=== PATIENT | male | born 1950 | race Caucasian/White ===

== ENCOUNTER 2016-06-05 11:35 | Inpatient (IN) | payer MEDICARE ==
[2016-06-05] VITALS (10 sets, daily range): BP systolic 149–182; BP diastolic 77–101; PULSE 70–82; RESP 17–28; TEMP 98.1–98.4; O2SAT 93–97
[2016-06-05] MEDS ORDERED: FISHCAP4 PO (11:52)
[2016-06-05] MEDS ORDERED: ASPI1TAB69 PO (11:52)
[2016-06-05] MEDS ORDERED: SODIUM CHLOR 0.9% 1000 ML INJ 1,000 ML IV ONE (12:05)
--- NOTE | 2016-06-05 12:06 | RADRPT ---
EXAM DATE/TIME: 06/05/2016 11:55 [facility] COMPARISON: No previous studies available for comparison. INDICATIONS : Right facial droop with expressive aphasia this morning. RADIATION DOSE: 41.76 CTDIvol (mGy) MEDICAL HISTORY : Unable to obtain SURGICAL HISTORY : Unable to obtain ENCOUNTER: Initial ACUITY: 1 day PAIN SCALE: 0/10 LOCATION: cranial TECHNIQUE: Multiple contiguous axial images were obtained of the head. Using automated exposure control and adj ustment of the mA and/or kV according to patient size, radiation dose was kept as low as reasonably a chievable to obtain optimal diagnostic quality images. FINDINGS: CEREBRUM: The ventricles are normal for age. No evidence of midline shift, mass lesion, hemorrhage or acute in farction. No extra-axial fluid collections are seen. POSTERIOR FOSSA: The cerebellum and brainstem are intact. The 4th ventricle is midline. The cerebellopontine angle i s unremarkable. EXTRACRANIAL: Severe opacification of the ethmoid sinuses. SKULL: The calvaria is intact. No evidence of skull fracture. CONCLUSION: Severe ethmoid sinusitis. No acute intracranial findings. Sharan Busby MD on June 05, 2016 at 12:03 Board Certified Radiologist. This report was verified electronically.
--- NOTE | 2016-06-05 12:15 | PD ---
HPI Chief Complaint: Neuro Symptoms/ Deficits Time Seen by Provider: 11:53 Travel History International Travel<30 days: No Contact w/Intl Traveler<30days: No Traveled to known affect area: No History of Present Illness HPI This patient woke up this morning feeling fine. At 10:45 AM he developed speech slurring and facial droop and right sided weakness of arm and leg. I have declared him a stroke alert and put a call into neurologist Dr. Headley. However, at this time the patient's symptoms seem to be significantly improved. His muscle weakness has resolved. His facial droop has resolved. He still has some slurring of speech but it is understandable. No confusion. 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 No history of CVA. Severity of symptoms was severe but now moderate. No obvious alleviating factors. Duration 85 minutes PFSH Past Medical History ?: Not Social History Alcohol Use: No Tobacco Use: No Substance Use: No Allergies-Medications (Allergen,Severity, Reaction): Coded Allergies: No Known Allergies (Unverified , 06/05/16) Reported Meds & Prescriptions Reported Meds & Active Scripts Active Reported Aspirin 81 Mg Tabdr 81 Mg PO DAILY Fish Oil + D3 (Fish Oil-Cholecalciferol) 1,200-1,000 Mg-Unit Cap 1 Cap PO DAILY Review of Systems General / Constitutional: No: Fever Eyes: No: Visual changes HENT: No: Headaches Cardiovascular: No: Chest Pain or Discomfort Respiratory: No: Shortness of Breath Gastrointestinal: No: Abdominal Pain Genitourinary: No: Dysuria Musculoskeletal: No: Pain Skin: No Rash Neurologic: Positive: Weakness, Slurred Speech Psychiatric: No: Depression Endocrine: No: Polydipsia Hematologic/Lymphatic: No: Easy Bruising Physical Exam Narrative GENERAL: Well-nourished, well-developed patient in no apparent distress. SKIN: Warm and dry. HEAD: Atraumatic. Normocephalic. EYES: Pupils equal and round. No scleral icterus. No injection or drainage. ENT: No nasal bleeding or discharge. Mucous membranes pink and moist. NECK: Trachea midline. No JVD. CARDIOVASCULAR: Regular rate and rhythm. No murmur appreciated. RESPIRATORY: No accessory muscle use. Clear to auscultation. Breath sounds equal bilaterally. GASTROINTESTINAL: Abdomen soft, non-tender, nondistended. Hepatic and splenic margins not palpable. MUSCULOSKELETAL: No obvious deformities. No clubbing. No cyanosis. No edema. NEUROLOGICAL: Awake and alert. No obvious cranial nerve deficits. Motor grossly within normal limits. Some slurring of speech but understandable. I don't see any facial droop. PSYCHIATRIC: Appropriate mood and affect; insight and judgment normal. Data Data Last Documented VS Vital Signs Date Time Temp Pulse Resp B/P Pulse Ox O2 Delivery O2 Flow Rate FiO2 06/05/16 12:11 97 Nasal Cannula 2 06/05/16 11:43 98.2 82 17 182/[address] Brain W/O Iv Contrast(Rout) (06/05/16 ) Diet Npo (06/05/16 Lunch) Activity Bed Rest (06/05/16 ) Electrocardiogram (06/05/16 ) I-Stat Creatinine (06/05/16 12:05) I-Stat Profile (06/05/16 12:05) Prothrombin Time / Inr (Pt) (06/05/16 12:05) Act Partial Throm Time (Ptt) (06/05/16 12:05) Complete Blood Count With Diff (06/05/16 12:05) Fibrinogen (06/05/16 12:05) Creatine Kinase (Cpk) (06/05/16 12:05) Drug Screen, Random Urine (06/05/16 12:05) Consult Neurology (06/05/16 ) Ecg Monitoring (06/05/16 12:05) Neuro Checks Q2HX12,Q4H (06/05/16 12:05) Nursing Bedside Swallow Assess .ONCE (06/05/16 12:05) Iv Access Insert/Monitor (06/05/16 12:05) NPO (06/05/16 12:05) Oximetry (06/05/16 12:05) Oxygen Administration (06/05/16 12:05) Sodium Chlor 0.9% 1000 Ml Inj (Ns 1000 M (06/05/16 12:05) Resp Oxygen Jules C Titrat 1-4 L (06/05/16 12:05) Aspirin Ec (Ecotrin Ec) (06/05/16 12:45) Clopidogrel (Plavix) (06/05/16 12:45) Code Status (06/05/16 13:41) Nih Stroke Scale - Nihss .On admission and discharge (06/05/16 13:41) Neuro Checks Q2HX12,Q4H (06/05/16 13:41) Case Management Consult (06/05/16 ) Nursing Bedside Swallow Assess .ONCE (06/05/16 13:41) Scd Bilateral/Knee High RAMONA.QSHIFT (06/05/16 13:41) Hemoglobin (Hgb) A1c (06/05/16 13:41) Lipid Profile (06/06/16 06:00) Us Carotid Arteries Comp Bilat (06/05/16 ) Mra Brain W/O Contrast (Cow) (06/05/16 ) Mri Brain W/O Contrast (06/05/16 ) ^ Hold Medication (06/05/16 13:41) Sodium Chloride 0.9% Flush (Ns Flush) (06/05/16 21:00) Sodium Chloride 0.9% Flush (Ns Flush) (06/05/16 13:45) Sodium Chlor 0.9% 1000 Ml Inj (Ns 1000 M (06/05/16 14:00) Bedside Glucose RAMONA.AC&HS (06/05/16 13:41) ^ Discontinue Insulin Orders (06/05/16 13:41) Insulin Aspart Supplemtl Scale (Novolog (06/05/16 16:00) Dextrose 50% In Jermaine (Vial) Inj (D50w (Vi (06/05/16 13:45) Glucagon Inj (Glucagon Inj) (06/05/16 13:45) Consult Rehab Medicine (06/05/16 13:41) Patient Financial Advocate / Telemetry RAMONA.Q8H (06/05/16 13:41) Consult Jacqueline Navigator (06/05/16 ) Lupus Anticoagulant Drvvt (06/05/16 13:45) Cardiolipin Abs Igg,Igm,Iga (06/05/16 13:45) Factor V (5) Mutation (Leiden) (06/05/16 13:45) Prothrombin [id number] Mutation (06/05/16 13:45) Protein S Activity (06/05/16 13:45) Protein C Activity (06/05/16 13:45) Westergren Sedimentation Rate (06/05/16 13:45) Rapid Plasmin Reagin Screen (06/05/16 13:45) Dania Screen (06/05/16 13:45) Clopidogrel (Plavix) (06/06/16 09:00) Aspirin (Aspirin) (06/06/16 09:00) (Hub Use Only)Inp Phy Cons/Ref (06/05/16 ) (Hub Use Only)Inp Phy Cons/Ref (06/05/16 ) Vital Signs (Adult) Q4H (06/05/16 14:31) Nih Stroke Scale - Nihss .On admission and discharge (06/05/16 14:31) Neuro Checks Q2HX12,Q4H (06/05/16 14:31) ^ Notify Dr: Other (06/05/16 14:31) Ot Request For Service (06/05/16 14:31) Consult Pt Eval & Treat (06/05/16 14:31) Activity Bed Rest (06/05/16 14:31) Nursing Bedside Swallow Assess .ONCE (06/05/16 14:31) Scd Bilateral/Knee High RAMONA.QSHIFT (06/05/16 14:31) Diet Npo (06/05/16 Dinner) Hemoglobin (Hgb) A1c (06/05/16 14:31) Resp Oxygen Jules C Titrat 1-4 L (06/05/16 ) ^ Hold Medication (06/05/16 14:31) Sodium Chloride 0.9% Flush (Ns Flush) (06/05/16 21:00) Sodium Chloride 0.9% Flush (Ns Flush) (06/05/16 14:45) Enalaprilat Inj (Vasotec Inj) (06/05/16 14:45) Bedside Glucose RAMONA.AC&HS (06/05/16 14:31) ^ Discontinue Insulin Orders (06/05/16 14:31) Patient Financial Advocate / Telemetry RAMONA.Q8H (06/05/16 14:31) Scd Bilateral/Knee High RAMONA.BID (06/05/16 14:31) Admit Order (Ed Use Only) (06/05/16 14:50) Labs Laboratory Tests Test 06/05/16 11:53 White Blood Count 4.6 TH/MM3 Red Blood Count 4.99 MIL/MM3 Hemoglobin 14.8 GM/DL Bedside Hemoglobin 15.0 G/DL Hematocrit 43.7 % Bedside Hematocrit 44.0 % Mean Corpuscular Volume 87.6 FL Mean Corpuscular Hemoglobin 29.7 PG Mean Corpuscular Hemoglobin 33.9 % Concent Red Cell Distribution Width 12.9 % Platelet Count 81 TH/MM3 Mean Platelet Volume 8.9 FL Neutrophils (%) (Auto) 60.3 % Lymphocytes (%) (Auto) 15.7 % Monocytes (%) (Auto) 14.6 % Eosinophils (%) (Auto) 8.9 % Basophils (%) (Auto) 0.5 % Neutrophils # (Auto) 2.8 TH/MM3 Lymphocytes # (Auto) 0.7 TH/MM3 Monocytes # (Auto) 0.7 TH/MM3 Eosinophils # (Auto) 0.4 TH/MM3 Basophils # (Auto) 0.0 TH/MM3 CBC Comment AUTO DIFF Differential Comment AUTO DIFF CONFIRMED Platelet Estimate LOW Platelet Morphology Comment NORMAL Erythrocyte Sedimentation Rate 17 mm/hr Prothrombin Time 10.5 SEC Prothromb Time International 1.0 RATIO Ratio Activated Partial 26.2 SEC Thromboplast Time Fibrinogen 439 mg/dL Bedside Sodium 141 MMOL/L Bedside Potassium 3.7 MMOL/L Bedside Chloride 101 MMOL/L Bedside Blood Urea Nitrogen 16 MG/DL Bedside Creatinine 1.3 MG/DL Bedside Glucose 132 MG/DL Total Creatine Kinase 59 U/L MDM Medical Screen Exam Complete: Yes Emergency Medical Condition: Yes Medical Record Reviewed: Yes Differential Diagnosis CVA, TIA, intracranial hemorrhage Narrative Course I have reviewed the patient's electronic medical record. This patient presents with acute stroke. He is critically ill with acute stroke and I have made him a stroke alert. He went emergently to brain CT which shows no hemorrhage. There is some sinusitis but otherwise negative IV placed I reviewed his EKG shows sinus rhythm without ST elevation or ectopy Extended cardiac monitoring shows sinus rhythm without ectopy CBC is normal Coagulation studies are normal Metabolic profile is normal Brain CT shows some sinus changes but no acute hemorrhage I discussed in detail with neurologist cost control analyst Dr. Headley I gave him a dose of aspirin and Plavix I reviewed with the hospitalist who will admit He does not need TPA given the rapid improvement in symptoms now leaving him with only mild symptoms. Neurologist concurs. Critical Care Narrative Aggregate critical care time was 40 minutes. Time to perform other separately billable procedures was not included in the critical care time. My time did not include minutes spent treating any other patients simultaneously or on activities that did not directly contribute to the patient's treatment. The services I provided to this patient were to treat and/or prevent clinically significant deterioration that could result in: Brain stem herniation, permanent neurologic deficit, cardiopulmonary arrest I provided critical care services requiring my management, as noted below: Chart data review, documentation time, medication orders and management, vital sign assessments/reviewing monitor data, ordering and reviewing lab tests, ordering and interpreting/reviewing x-rays and diagnostic studies, care of the patient and discussion of the patient with the admitting physicians. Stroke Alert NIHSS NIH Stroke Scale Result: 1 NIHSS Time Completed: 11:45 Thrombolytic Contraindications Contraindications Comment: Rapid improvement of symptoms, symptoms now are mild Diagnosis Diagnosis: Primary Impression: Acute ischemic left MCA stroke Admitting Physician Requests: Admit Sven Deluca MD Jun 05, 2016 12:15
[2016-06-05 12:28] LABS: I-STAT POTASSIUM 3.7 MMOL/L (3.5-4.9)
[2016-06-05 12:33] LABS: AUTOMATED NEUTROPHIL # 2.8 TH/MM3 (1.8-7.7); BASOPHIL % 0.5 % (0.0-2.0); EOSINOPHIL # 0.4 TH/MM3 (0-0.4); EOSINOPHIL % 8.9 % (0.0-4.0); HEMATOCRIT 43.7 % (39.0-51.0); LYMPH % 15.7 % (9.0-44.0); LYMPHOCYTE # 0.7 TH/MM3 (1.0-4.8); MEAN CELL VOLUME 87.6 FL (80.0-100.0); MEAN CORPUSCULAR HEMOGLOBIN 29.7 PG (27.0-34.0); MEAN CORPUSCULAR HGB CONC 33.9 % (32.0-36.0); MONO % 14.6 % (0.0-8.0); NEUT % 60.3 % (16.0-70.0); PLATELET COUNT 81 TH/MM3 (150-450); RED BLOOD COUNT 4.99 MIL/MM3 (4.50-5.90); RED CELL DISTRIBUTION WIDTH 12.9 % (11.6-17.2); WHITE BLOOD COUNT 4.6 TH/MM3 (4.0-11.0)
[2016-06-05 12:38] LABS: HEMO FLAGS AUTO DIFF
[2016-06-05] MEDS ORDERED: CLOPIDOGREL 75 MG TAB PO ONE (12:45)
[2016-06-05] MEDS ORDERED: ASPIRIN EC 325 MG TABEC PO ONE (12:45)
[2016-06-05 12:47] LABS: APTT (PATIENT) 26.2 SEC (24.3-30.1); PROTHROMBIN TIME - PATIENT 10.5 SEC (9.8-11.6)
[2016-06-05 13:02] LABS: PLATELET ESTIMATE SMEAR LOW (NORMAL); PLATELET MORPHOLOGY NORMAL (NORMAL); SCAN/DIFF AUTO DIFF CONFIRMED
[2016-06-05] MEDS ORDERED: GLUCAGON 1 MG/ML VIAL IM/SQ PRN (13:45)
[2016-06-05] MEDS ORDERED: DEXTROSE 50% IN WATER 50 ML VIAL(D50) IV PUSH PRN (13:45)
[2016-06-05] MEDS ORDERED: SODIUM CHLORIDE 0.9% FLUSH 10 ML FLUSH IV FLUSH PRN ×2 (13:45→14:45)
[2016-06-05] MEDS: SODIUM CHLOR 0.9% 1000 ML INJ 1,000 ML IV SCH (14:32)
[2016-06-05] MEDS ORDERED: ENALAPRILAT 1.25 MG/ML VIAL IV PRN (14:45)
--- NOTE | 2016-06-05 15:03 | MB ---
cc: RUBINA BUSBY M.D. DATE OF CONSULTATION: 06/05/2016 REASON FOR CONSULTATION Stroke alert. HISTORY OF PRESENT ILLNESS Mr. Bowie is a 66-year-old man who was in his usual state of health until around 10:45 this morning when he suddenly developed significant right hemiparesis and right facial droop and slurred speech. He presented to the ER and a stroke alert was called. I discussed his case with Dr. Deluca. Since the onset of his symptoms he has shown marked improvement, basically normal now with the right arm and right leg strength with some minimal dysarthria. PAST MEDICAL HISTORY He has no prior history of stroke or TIA. He does have a history of DVT with pulmonary embolus about six years ago for which he was temporarily on Coumadin but is no longer on Coumadin. MEDICATIONS AT HOME His medications at home are just Aspirin 81 mg daily. He states he takes no other medications. ALLERGIES NONE KNOWN. SOCIAL HISTORY He denies alcohol use or tobacco use. NEUROLOGIC EXAMINATION VITAL SIGNS: His blood pressure is 182/101, pulse is 82, respiratory rate 17, temperature 98 degrees. Higher cortical function: He is alert and oriented. Speech is mildly dysarthric but not aphasic. He can repeat simple phrases. He can follow simple commands. Cranial nerves: He has got a very minimal right upper motor neuron 7th palsy but is able to activate facial muscles normally bilaterally. The palsy is mainly at rest. Other cranial nerves are normal. On motor examination, he demonstrates 5/5 strength of both upper and lower extremities. He has got normal fine motor skills in both upper extremities and both hands, he has no drift. Reflexes are symmetric. Cerebellar testing is normal. There is no Babinski present. IMAGING CT scan of the brain shows ethmoid sinusitis. No acute findings. No hemorrhage is present. LABORATORY DATA The white count is 4600, hemoglobin 14.8, hematocrit 43.7% platelet count is 81,000. Sodium is 141, potassium 3.7, chloride 101, BUN is 16, creatinine 1.3, glucose 132. His PT is 10.5, INR 1, APTT 26.2. His EKG is sinus rhythm. IMPRESSION Left hemisphere stroke, possible TIA. NIH Stroke Scale is 1. He is showing rapid improvement, now basically back to normal except for some residual mild dysarthria and mild right upper motor neuron 7th palsy. Because of the rapid resolution, I would recommend holding off on IV TPA in this case with the inherent risk of hemorrhage of TPA given the fact that he has essentially resolved his symptoms. Because of the low NIH Stroke Scale and no evidence of aphasia, I do not feel he needs further evaluation with CT angiography at the present time or any other advanced imaging at this time. RECOMMENDATIONS Would recommend starting Plavix 75 mg daily along with Aspirin 325 mg daily. Allow permissive hypertension up to 210/110. We will evaluate him further with an MRI/MRA of the brain, echocardiogram, carotid ultrasound, monitor telemetry, rule out a-fib, also lipid panel. Because of his history of DVT in the past, I would like to get a hypercoagulable panel to be sure he does not have a hypercoagulable state. Thank you for asking me to see this pleasant patient. MD LEANN Paulson/AGUSTÍN /1:40 PM /2:22 PM
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
[2016-06-05 15:35] LABS: AMPHETAMINE, URINE NEG (NEG); BARBITURATES, URINE NEG (NEG); COCAINE, URINE NEG (NEG)
[2016-06-05] MEDS: INSULIN ASPART SUPPLEMENTAL SCALE SQ SCH ×2 (16:00→22:04)
--- NOTE | 2016-06-05 16:27 | RADRPT ---
EXAM DATE/TIME: 06/05/2016 15:32 [facility] COMPARISON: No previous studies available for comparison. INDICATIONS : CVA. MEDICAL HISTORY : Deep venous thrombosis. Right side weakness. Slurred speech. Expressive aphasia. SURGICAL HISTORY : None. ENCOUNTER: Initial ACUITY: 1 day PAIN SCORE: 0/10 LOCATION: Bilateral neck PEAK SYSTOLIC VELOCITIES (cm/sec): ICA/CCA RATIO: Right: 1.1 Left: 0.6 ICA: Right: 77 Left: 63 CCA: Right: 72 Left: 110 ECA: Right: 104 Left: 72 VERTEBRAL: Right: 53 antegrade Left: 29 antegrade Elevated flow velocities and ICA/CCA ratios have been found to correlate with increased degrees of vessel stenosis, calculated as percentage of diameter relative to a normal segment of distal ICA/CCA FINDINGS: RIGHT CAROTID: No significant stenosis is visualized. The waveforms are within normal limits. LEFT CAROTID: No significant stenosis is visualized. The waveforms are within normal limits. VERTEBRAL ARTERIES: Antegrade flow is seen in both vertebral arteries. MISCELLANEOUS: None. CONCLUSION: Carotid ultrasound within normal limits. Sharan Busby MD on June 05, 2016 at 16:22 Board Certified Radiologist. This report was verified electronically.
--- NOTE | 2016-06-05 16:41 | RADRPT ---
EXAM DATE/TIME: 06/05/2016 16:23 [facility] COMPARISON: No previous studies available for comparison. INDICATIONS : Coughing sputum, stroke MEDICAL HISTORY : None. SURGICAL HISTORY : None. ENCOUNTER: Initial ACUITY: 1 day PAIN SCORE: 0/10 LOCATION: Bilateral chest FINDINGS: A single view of the chest demonstrates the lungs to be symmetrically aerated without evidence of mas s, infiltrate or effusion. The cardiomediastinal contours are unremarkable. Osseous structures are intact. CONCLUSION: 1. No acute cardiopulmonary disease. Lei Beavers MD on June 05, 2016 at 16:40 Board Certified Radiologist. This report was verified electronically.
--- NOTE | 2016-06-05 18:25 | RADRPT ---
EXAM DATE/TIME: 06/05/2016 17:39 [facility] COMPARISON: CT BRAIN W/O CONTRAST, June 05, 2016, 11:55. INDICATIONS : Slurred speech. Facial droop. CVA. MEDICAL HISTORY : Deep venous thrombosis. SURGICAL HISTORY : Tonsillectomy. Left knee. ENCOUNTER: Subsequent ACUITY: 1 day PAIN SCORE: 0/10 LOCATION: Head. TECHNIQUE: Multiplanar, multisequence MRI of the brain was performed without contrast. FINDINGS: There is focal signal abnormality within the left basal ganglia in the region of the body of the caud ate and extending into the expected region of the left globus pallidus on the diffusion weighted imag es indicating acute infarct. Minimal periventricular white matter small vessel ischemic changes are noted bilaterally. The ventricles, sulci and cisterns are normal in size, shape and position for the patient's age. There is an old lacunar infarct involving the head of the left caudate nucleus. Ther e is no acute hemorrhage, midline shift or extra-axial fluid collections. Mucosal thickening is note d involving the maxillary sinuses and ethmoid air cells bilaterally. CONCLUSION: 1. Focal signal abnormality involving the left basal ganglia on the diffusion weighted images indicat ing acute infarct in the left middle cerebral artery distribution. Clinical correlation is recommend ed. 2. Minimal periventricular white matter small vessel ischemic changes are bilaterally. 3. No acute hemorrhage, midline shift or extra-axial fluid collections. 4. Old lacunar infarct involving the head of the left caudate nucleus. 5. Mucosal thickening involving the bilateral maxillary and ethmoid air cells. Chris Chaney MD on June 05, 2016 at 18:16 Board Certified Radiologist. This report was verified electronically.
--- NOTE | 2016-06-05 18:29 | RADRPT ---
EXAM DATE/TIME: 06/05/2016 17:39 [place] COMPARISON: No previous studies available for comparison. INDICATIONS : Slurred speech. Facial droop. CVA. MEDICAL HISTORY : Deep venous thrombosis. SURGICAL HISTORY : Tonsillectomy. Left knee. ENCOUNTER: Subsequent ACUITY: 2 day PAIN SCORE: 0/10 LOCATION: Head. Please note a normal MRA of the brain does not entirely exclude the possibility of a small aneurysm, nor the possibility of distal intracranial vessel disease. TECHNIQUE: 3D time of flight MRA was performed. Source images, multiplanar STS MIP, and 3D volume MIP reconstru ctions were reviewed. FINDINGS: There is moderate focal segmental stenosis involving the left middle cerebral artery just proximal to the bifurcation. The distal branches of the middle cerebral arteries are patent bilaterally. The A 1 segments are patent bilaterally. The anterior cerebral arteries are patent. There is a patent rig ht posterior communicating artery which fills the right posterior cerebral artery. The left posterior cerebral artery fills from the basilar artery. Both posterior cerebral arteries are patent througho ut their courses. The basilar artery is patent without significant stenosis or occlusion. The upper most portion of the left vertebral artery is not visualized and may be occluded. The right upper vert ebral artery is patent. The upper cervical, petrous, cavernous, and supraclinoid internal carotid ar teries are patent bilaterally. There is no aneurysm formation. CONCLUSION: 1. Moderate focal segmental stenosis involving the left middle cerebral artery just proximal to the b ifurcation. 2. Patent right posterior communicating artery. Chris Chaney MD on June 05, 2016 at 18:20 Board Certified Radiologist. This report was verified electronically.
[2016-06-05] MEDS ORDERED: SODIUM CHLORIDE 0.9% FLUSH 10 ML FLUSH IV FLUSH SCH (21:00)
[2016-06-05 21:31] LABS: HEMOGLOBIN A1a 1.1 %
[2016-06-05 21:32] LABS: HEMOGLOBIN A1b 1.7 %; HEMOGLOBIN Ao 84.6 %; HEMOGLOBIN LA1C 2.4 %
[2016-06-05] MEDS: SODIUM CHLORIDE 0.9% FLUSH 10 ML FLUSH IV FLUSH SCH (22:04)
[2016-06-05] MEDS: HEPARIN SODIUM - SQ 10,000 UNITS/ML VIAL SQ SCH (22:05)
[2016-06-06] VITALS (9 sets, daily range): BP systolic 138–168; BP diastolic 60–87; PULSE 57–83; RESP 18–20; TEMP 96–97.5; O2SAT 93–96
[2016-06-06] MEDS: SODIUM CHLOR 0.9% 1000 ML INJ 1,000 ML IV SCH ×2 (03:21→18:31)
[2016-06-06] MEDS: HEPARIN SODIUM - SQ 10,000 UNITS/ML VIAL SQ SCH ×3 (05:54→22:00)
[2016-06-06] MEDS: INSULIN ASPART SUPPLEMENTAL SCALE SQ SCH ×4 (05:55→20:11)
[2016-06-06 07:05] LABS: HDL CHOLESTEROL 33.5 MG/DL (40.0-60.0)
[2016-06-06] MEDS: ASPIRIN 325 MG TAB PO SCH (08:26)
[2016-06-06] MEDS: THIAMINE HCL 100 MG TAB PO SCH (08:26)
[2016-06-06] MEDS: CLOPIDOGREL 75 MG TAB PO SCH (08:26)
[2016-06-06] MEDS: SODIUM CHLORIDE 0.9% FLUSH 10 ML FLUSH IV FLUSH SCH ×2 (08:26→20:11)
--- NOTE | 2016-06-06 12:50 | HHI.PR ---
Subjective Remarks Patient sitting on the chair his at the bedside, he still have right facial droop and some stuttering, however his thing his doing better today He complained of cough probably he had recent upper respiratory infection with bronchitis MRI came back confirming acute left MCA stroke Objective Vitals Vital Signs Date Time Temp Pulse Resp B/P Pulse Ox O2 Delivery O2 Flow Rate FiO2 06/06/16 10:29 94 21 06/06/16 08:36 97.5 76 20 168/79 95 06/06/16 04:00 97.0 57 18 142/73 95 06/06/16 00:30 70 06/06/16 00:00 97.4 83 20 140/60 96 06/05/16 20:45 98.4 74 18 166/91 95 06/05/16 20:16 18 98 Room Air 06/05/16 19:12 98.1 70 18 168/93 97 Room Air 06/05/16 18:00 77 28 168/92 95 Room Air 06/05/16 17:09 76 18 162/82 96 Room Air 06/05/16 16:00 72 18 160/86 97 Room Air 06/05/16 15:00 80 18 159/86 97 Room Air 06/05/16 14:00 74 162/77 97 Room Air 06/05/16 13:00 74 20 149/84 96 Room Air I/O 06/05/16 06/05/16 06/05/16 06/06/16 06/06/16 06/06/16 07:00 15:00 23:00 07:00 15:00 23:00 Intake Total 679 ml 524 ml Output Total 100 ml 700 ml Balance 579 ml -176 ml Intake Oral 0 ml IV Total 679 ml 524 ml Output Urine Total 100 ml 700 ml # Voids 3 # Bowel Movements 0 Result Diagram: 06/05/16 1153 Objective Remarks GENERAL: This is a well-nourished, well-developed patient, in no apparent distress. SKIN: No rashes, warm and dry HEAD: Atraumatic. Normocephalic. EYES: Pupils equal round and reactive. Extraocular motions intact. No scleral icterus. ENT: Nose without bleeding, or drainage, Airway patent. NECK: Trachea midline. Supple CARDIOVASCULAR: Regular rate and rhythm without murmurs, gallops, or rubs. RESPIRATORY: Fair air entry bilaterally. Positive rhonchi GASTROINTESTINAL: Abdomen soft, non-tender, nondistended. Positive bowel sounds MUSCULOSKELETAL: Extremities without clubbing, cyanosis, or edema. Pedal pulses appreciated NEUROLOGICAL: Cranial nerves examined positive for right sided facial palsy otherwise normal. Moves all extremity. Normal speech.no focal neurological deficit A/P Assessment and Plan Acute CVA Left hemispheric stroke versus TIA Severe ethmoid sinusitis showed on CT Alcohol abuse Thrombocytopenia platelet 81 could be due to alcoholism we'll monitor Recent URI possible bronchitis with chest x-ray rule out underlying pneumonia Plan: Current ultrasound without normal limits MRI of the brain showed acute left MCA, old lacunar infarct, ethmoid thickening mucosa MRA moderate focal segmental stenosis involving left MCA Current ultrasound without normal limits The patient for telemetry, NIH scale, neuro check Appreciate neurology consultation Plavix 75 mg daily along with Aspirin 325 mg daily. Permissive hypertension Monitor telemetry rule out a-fib, reviewed lipid panel showed LDL 125>> start pravastatin 40 mg daily Due to history of DVT in the past, hypercoagulable panel to be sure he does not have a hypercoagulable state. Negative chest x-ray Thiamine folic acid and Librium to avoid alcohol withdrawal SCD and heparin for DVT prophylaxis Beulah Reinoso MD Jun 06, 2016 12:50
[2016-06-06 14:11] LABS: RAPID PLASMA REAGIN SCREEN NON-REACTIVE (NON-REACTVE)
--- NOTE | 2016-06-06 16:27 | EKG ---
Date Performed: 06/05/2016 Time Performed: 12:06:50 PTAGE: 66 years EKG: Sinus rhythm NONSPECIFIC T-WAVE ABNORMALITY BORDERLINE ECG PREVIOUS TRACING : 05/09/2016 07.50 DOCTOR: Radha Castanon Interpretating Date/Time 06/06/2016 16:22:48
[2016-06-06 16:32] LABS: ANA SCREEN NEG (NEG)
--- NOTE | 2016-06-06 18:42 | HHI.PR ---
Review/Management Diagnosis small left basal ganglia cva Plan continue aspirin and plavix and statin check echocardiogram. If stable and echo with no embolic source, ok from neurology standpoint to d/c tomorrow and f/u with me in office in 2 weeks. If work up negative, recommend cardiology eval as outpatient to [employer] loop recorder to r/o afib. Diagnosis/Plan: Subjective Subjective Comments No acute events reported No headache He states speech is better today although still slurred He denies weakness of UE or LE Ambulated well Active Medications Current Medications Medications (Trade) Dose Ordered Sig/Yasmeen Route Start Time Stop Time Status Last Admin (NS 1000 ml Inj) 1,000 ml @ 70 mls/hr [id number] IV 06/05/16 14:00 06/06/16 03:21 (D50w (Vial) Inj) 25 ml UNSCH PRN IV PUSH 06/05/16 13:45 (Glucagon Inj) 1 mg UNSCH PRN IM/SQ 06/05/16 13:45 (Plavix) 75 mg DAILY PO 06/06/16 09:00 06/06/16 08:26 (Aspirin) 325 mg DAILY PO 06/06/16 09:00 06/06/16 08:26 (NS Flush) 2 ml BID IV FLUSH 06/05/16 21:00 06/06/16 08:26 (NS Flush) 2 ml UNSCH PRN IV FLUSH 06/05/16 14:45 (Vasotec Inj) 1.25 mg Q4H PRN IV 06/05/16 14:45 (Vitamin B1) 100 mg DAILY PO 06/06/16 09:00 06/06/16 08:26 (Librium) 10 mg TID PRN PO 06/05/16 15:30 (Heparin Inj) 5,000 units Q8HR SQ 06/05/16 22:00 06/06/16 13:42 (Pravachol) 40 mg DAILY PO 06/07/16 09:00 Allergies Allergies Coded Allergies No Known Allergies (Unverified06/05/16) Exam I&O / VS 06/05/16 06/05/16 06/06/16 15:00 23:00 07:00 Intake Total 679 ml 524 ml Output Total 100 ml 700 ml Balance 579 ml -176 ml Intake Oral 0 ml IV Total 679 ml 524 ml Output Urine Total 100 ml 700 ml # Voids 3 # Bowel Movements 0 Vital Signs Date Time Temp Pulse Resp B/P Pulse Ox O2 Delivery O2 Flow Rate FiO2 06/06/16 17:23 95 Nasal Cannula 2.00 06/06/16 16:12 96.9 76 20 154/81 95 06/06/16 13:02 96.0 70 20 138/87 93 06/06/16 10:29 94 21 06/06/16 08:36 97.5 76 20 168/79 95 06/06/16 04:00 97.0 57 18 142/73 95 06/06/16 00:30 70 06/06/16 00:00 97.4 83 20 140/60 96 06/05/16 20:45 98.4 74 18 166/91 95 06/05/16 20:16 18 98 Room Air 06/05/16 19:12 98.1 70 18 168/93 97 Room Air Exam Comments Alert, oriented. Speech is dysarthric--improved from yesterday CN--mild right upper motor neuron CN 7 palsey. Other CN normal Motor 5/5 BUE and BLE. mild diminished fine motor skills right hand Objective Radiology Results MRI brain--smal infarct left basal ganglia MRA stenosis in left MCA. carotid US--normal echo--pending Micro and Labs Laboratory Tests Test 06/06/16 05:52 Triglycerides Level 150 Cholesterol Level 188 LDL Cholesterol 125 HDL Cholesterol 33.5 Cholesterol/HDL Ratio 5.61 Lonny Headley PhD Jun 06, 2016 18:42
[2016-06-06] MEDS ORDERED: guaiFENesin/CODEINE SYRUP 200 MG/20 MG/10 ML CUP PO ONE (21:00)
[2016-06-07] VITALS (10 sets, daily range): BP systolic 132–157; BP diastolic 63–85; PULSE 69–94; RESP 16–20; TEMP 96.3–97.4; O2SAT 92–96
[2016-06-07] MEDS: HEPARIN SODIUM - SQ 10,000 UNITS/ML VIAL SQ SCH ×3 (05:30→23:28)
[2016-06-07] MEDS: INSULIN ASPART SUPPLEMENTAL SCALE SQ SCH ×4 (05:30→21:00)
[2016-06-07] MEDS: CLOPIDOGREL 75 MG TAB PO SCH (08:26)
[2016-06-07] MEDS: THIAMINE HCL 100 MG TAB PO SCH (08:26)
[2016-06-07] MEDS: SODIUM CHLORIDE 0.9% FLUSH 10 ML FLUSH IV FLUSH SCH ×2 (08:26→21:00)
[2016-06-07] MEDS: ASPIRIN 325 MG TAB PO SCH (08:26)
[2016-06-07] MEDS: SODIUM CHLOR 0.9% 1000 ML INJ 1,000 ML IV SCH ×2 (08:26→23:12)
[2016-06-07] MEDS: PRAVASTATIN SOD 40 MG TAB PO SCH (08:26)
[2016-06-07] MEDS ORDERED: guaiFENesin SOLUTION 200 MG/10 ML CUP PO PRN (12:00)
[2016-06-07] MEDS ORDERED: ASPI325T PO (12:01)
[2016-06-07] MEDS ORDERED: PRAV40TA PO (12:01)
[2016-06-07] MEDS ORDERED: VITA100T2 PO (12:01)
[2016-06-07] MEDS ORDERED: PLAV75TA29 PO (12:01)
--- NOTE | 2016-06-07 12:05 | HHI.PR ---
Subjective Remarks Patient doing well, denied complaining afebrile overnight Neurology recommending okay to discharge. 2-D echo didn't show embolic source Objective Vitals Vital Signs Date Time Temp Pulse Resp B/P Pulse Ox O2 Delivery O2 Flow Rate FiO2 06/07/16 08:00 97.4 75 18 132/63 96 06/07/16 07:00 75 06/07/16 04:00 97.1 88 18 136/82 93 06/07/16 00:00 97.3 72 20 153/80 95 06/06/16 20:00 97.1 78 20 158/83 95 06/06/16 17:23 95 Nasal Cannula 2.00 06/06/16 16:12 96.9 76 20 154/81 95 06/06/16 13:02 96.0 70 20 138/87 93 I/O 06/06/16 06/06/16 06/06/16 06/07/16 06/07/16 06/07/16 07:00 15:00 23:00 07:00 15:00 23:00 Intake Total 524 ml Output Total 700 ml Balance -176 ml Intake Oral 0 ml IV Total 524 ml Output Urine Total 700 ml # Voids 3 Result Diagram: 06/05/16 1153 Objective Remarks GENERAL: This is a well-nourished, well-developed patient, in no apparent distress. SKIN: No rashes, warm and dry HEAD: Atraumatic. Normocephalic. EYES: Pupils equal round and reactive. Extraocular motions intact. No scleral icterus. ENT: Nose without bleeding, or drainage, Airway patent. NECK: Trachea midline. Supple CARDIOVASCULAR: Regular rate and rhythm without murmurs, gallops, or rubs. RESPIRATORY: Fair air entry bilaterally. Positive rhonchi GASTROINTESTINAL: Abdomen soft, non-tender, nondistended. Positive bowel sounds MUSCULOSKELETAL: Extremities without clubbing, cyanosis, or edema. Pedal pulses appreciated NEUROLOGICAL: Cranial nerves examined positive for right sided facial palsy otherwise normal. Moves all extremity. Normal speech.no focal neurological deficit A/P Assessment and Plan 06/07: Appreciate neurology recommendation, continue aspirin and plavix and statin check echocardiogram. If stable and echo with no embolic source, ok by neurology to d/c tomorrow and f /u with me in office in 2 weeks. If work up negative, recommend cardiology eval as outpatient to consider [facility] loop recorder to r/o afib. A/P: Acute CVA small left basal ganglia cva Severe ethmoid sinusitis showed on CT Alcohol abuse Thrombocytopenia platelet 81 could be due to alcoholism we'll monitor Recent URI possible bronchitis with chest x-ray rule out underlying pneumonia Plan: Carotid ultrasound within normal limits MRI of the brain showed acute left MCA, old lacunar infarct, ethmoid thickening mucosa MRA moderate focal segmental stenosis involving left MCA Current ultrasound without normal limits The patient for telemetry, NIH scale, neuro check Appreciate neurology consultation Plavix 75 mg daily along with Aspirin 325 mg daily. Permissive hypertension Monitor telemetry rule out a-fib, reviewed lipid panel showed LDL 125>> start pravastatin 40 mg daily Due to history of DVT in the past, hypercoagulable panel to be sure he does not have a hypercoagulable state. Negative chest x-ray Thiamine folic acid and Librium to avoid alcohol withdrawal SCD and heparin for DVT prophylaxis Discharge Planning Discharge patient to home Condition on discharge: Improved Healthy heart Diet as tolerated Ad Carmela activity Rx written: Aspirin 325, pravastatin Follow-up with primary care physician Beulah Reinoso MD Jun 07, 2016 12:05
[2016-06-07] MEDS ORDERED: AMOX875T2 PO (12:28)
[2016-06-07] MEDS ORDERED: GUAI100S7 PO (12:28)
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
--- NOTE | 2016-06-07 14:08 | EC ---
Study Study Date:06/07/2016 STUDY CONCLUSIONS SUMMARY - Left ventricle: The cavity size was normal. Wall thickness was normal. Systolic function was moderately reduced. The estimated ejection fraction was in the range of 35% to 40%. Wall motion was normal; there were no regional wall motion abnormalities. Doppler parameters are consistent with abnormal left ventricular relaxation (grade 1 diastolic dysfunction). - Pulmonary arteries: PA peak pressure: 37mm Hg (S). If LV function is below 40, please consider prescribing an ACEI or ARB or document rationale for non-use. PROCEDURE DATA STUDY STATUS: Elective. Procedure: Transthoracic echocardiography. Image quality was good. Scanning was performed from the parasternal, apical, and subcostal acoustic windows. Study completion: The patient tolerated the procedure well. Transthoracic echocardiography. M-mode, complete 2D, complete spectral Doppler, and color Doppler. Patient status: Inpatient. CARDIAC ANATOMY LEFT VENTRICLE: The cavity size was normal. Wall thickness was normal. Systolic function was moderately reduced. The estimated ejection fraction was in the range of 35% to 40%. Wall motion was normal; there were no regional wall motion abnormalities. Doppler parameters are consistent with abnormal left ventricular relaxation (grade 1 diastolic dysfunction). AORTIC VALVE: Trileaflet; normal thickness leaflets. Doppler: Transvalvular velocity was within the normal range. There was no stenosis. No regurgitation. AORTA: Aortic root: The aortic root was normal in size. MITRAL VALVE: Structurally normal valve. Doppler: Transvalvular velocity was within the normal range. There was no evidence for stenosis. Trace to mild regurgitation. LEFT ATRIUM: The atrium was normal in size. RIGHT VENTRICLE: The cavity size was normal. Wall thickness was normal. PULMONIC VALVE: Doppler: Transvalvular velocity was within the normal range. There was no evidence for stenosis. No regurgitation. TRICUSPID VALVE: Structurally normal valve. Doppler: Transvalvular velocity was within the normal range. Trace regurgitation. PULMONARY ARTERY: The main pulmonary artery was normal-sized. Systolic pressure was within the normal range. RIGHT ATRIUM: The atrium was normal in size. PERICARDIUM: There was no pericardial effusion. SYSTEMIC VEINS: Inferior vena cava: The vessel was normal in size. BASIC MEASUREMENTS ADULT NORMAL Left ventricle LV internal dimension, ED, chordal level, 44.3 mm 43-52 PLAX LV internal dimension, ES, chordal level, 35.3 mm 23-38 PLAX Fractional shortening, chordal level, PLAX *20 % >29 LV posterior wall thickness, ED 11.2 mm IVS/LVPW ratio, ED 0.98 <1.3 Ventricular septum Septal thickness, ED 11 mm Aortic valve Leaflet separation 24 mm 15-26 Right ventricle RV internal dimension, ED, PLAX 25.8 mm 19-38 BASIC MEASUREMENTS ADULT NORMAL Aortic valve Leaflet separation 24 mm 15-26 Aorta Root diameter, ED 37 mm 20-37 Left atrium Anterior-posterior dimension, ES 25 mm 19-40 LA/aortic root ratio 0.68 DOPPLER MEASUREMENTS ADULT NORMAL Main pulmonary artery Pressure, S *37 mm Hg =30 Mitral valve Peak E-wave velocity 52.3 cm/s Peak A-wave velocity 63.2 cm/s Peak E/A ratio 0.8 Tricuspid valve Regurgitant peak velocity 217 cm/s Peak RV-RA gradient, S 19 mm Hg Maximal regurgitant velocity 217 cm/s Systemic veins Estimated CVP 10 mm Hg Right ventricle RV pressure, S *37 mm Hg <30 LEGEND: Mean values are shown as u=mean value. Asterisk (*) shultz values outside specified normal range. Prepared and signed by Agnelika Perez [id number]
[2016-06-07] MEDS: AMOXICILLIN/CLAVULANATE K 875 MG TAB PO SCH (23:27)
[2016-06-08] VITALS (10 sets, daily range): BP systolic 137–160; BP diastolic 74–90; PULSE 58–74; RESP 18–20; TEMP 95.9–98.1; O2SAT 92–96
[2016-06-08] MEDS: INSULIN ASPART SUPPLEMENTAL SCALE SQ SCH ×4 (06:49→21:00)
[2016-06-08] MEDS: HEPARIN SODIUM - SQ 10,000 UNITS/ML VIAL SQ SCH ×3 (06:49→21:52)
[2016-06-08] MEDS: CLOPIDOGREL 75 MG TAB PO SCH (07:34)
[2016-06-08] MEDS: AMOXICILLIN/CLAVULANATE K 875 MG TAB PO SCH ×2 (07:34→21:50)
[2016-06-08] MEDS: PRAVASTATIN SOD 40 MG TAB PO SCH (07:34)
[2016-06-08] MEDS: ASPIRIN 325 MG TAB PO SCH (07:34)
[2016-06-08] MEDS: THIAMINE HCL 100 MG TAB PO SCH (07:34)
[2016-06-08] MEDS: SODIUM CHLORIDE 0.9% FLUSH 10 ML FLUSH IV FLUSH SCH ×2 (07:35→21:51)
[2016-06-08] MEDS: SODIUM CHLOR 0.9% 1000 ML INJ 1,000 ML IV SCH (12:18)
--- NOTE | 2016-06-08 14:40 | HHI.PR ---
Subjective Remarks Patient stable sitting on the chair no new neurological deficit However his 2-D echo came back later last night with severe reduced ejection fraction 35%, patient has no previous history of coronary artery disease, I placed consult for cardiology to assist patient prior to discharge Objective Vitals Vital Signs Date Time Temp Pulse Resp B/P Pulse Ox O2 Delivery O2 Flow Rate FiO2 06/08/16 12:00 95.9 69 18 140/83 94 06/08/16 08:00 96.8 74 20 148/90 95 06/08/16 07:00 58 06/08/16 04:00 97.7 70 20 154/79 92 06/08/16 00:00 97.0 67 20 139/86 93 06/07/16 23:00 69 06/07/16 20:00 96.8 80 20 157/79 93 06/07/16 16:00 96.3 71 18 139/85 92 06/07/16 15:00 71 I/O 06/07/16 06/07/16 06/07/16 06/08/16 06/08/16 06/08/16 07:00 15:00 23:00 07:00 15:00 23:00 Intake Total 120 ml 0 ml Output Total 1 ml Balance -1 ml 120 ml 0 ml Intake Oral 120 ml 0 ml Stool Total 1 ml # Voids 3 2 1 1 # Bowel Movements 0 0 Result Diagram: 06/05/16 1153 Objective Remarks GENERAL: This is a well-nourished, well-developed patient, in no apparent distress. SKIN: No rashes, warm and dry HEAD: Atraumatic. Normocephalic. EYES: Pupils equal round and reactive. Extraocular motions intact. No scleral icterus. ENT: Nose without bleeding, or drainage, Airway patent. NECK: Trachea midline. Supple CARDIOVASCULAR: Regular rate and rhythm without murmurs, gallops, or rubs. RESPIRATORY: Fair air entry bilaterally. Positive rhonchi GASTROINTESTINAL: Abdomen soft, non-tender, nondistended. Positive bowel sounds MUSCULOSKELETAL: Extremities without clubbing, cyanosis, or edema. Pedal pulses appreciated NEUROLOGICAL: Cranial nerves examined positive for right sided facial palsy otherwise normal. Moves all extremity. Normal speech.no focal neurological deficit Procedures none A/P Problem List: (1) Acute ischemic left MCA stroke ICD Code: I63.512 Status: Acute Assessment and Plan 06/07: Appreciate neurology recommendation, continue aspirin and plavix and statin check echocardiogram. If stable and echo with no embolic source, ok by neurology to d/c tomorrow and f /u with me in office in 2 weeks. 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 A/P: Acute CVA small left basal ganglia cva Severe reduced EF 35% no decompensation Severe ethmoid sinusitis showed on CT Alcohol abuse Thrombocytopenia platelet 81 could be due to alcoholism we'll monitor Recent URI possible bronchitis with chest x-ray rule out underlying pneumonia Plan: Carotid ultrasound within normal limits MRI of the brain showed acute left MCA, old lacunar infarct, ethmoid thickening mucosa MRA moderate focal segmental stenosis involving left MCA Current ultrasound without normal limits 2-D echo came with advanced reduced EF 35%>> consult cardiology to assess for underlying ischemia The patient for telemetry, NIH scale, neuro check Appreciate neurology consultation Plavix 75 mg daily along with Aspirin 325 mg daily. Permissive hypertension Monitor telemetry rule out a-fib, reviewed lipid panel showed LDL 125>> start pravastatin 40 mg daily Due to history of DVT in the past, hypercoagulable panel to be sure he does not have a hypercoagulable state. Negative chest x-ray Thiamine folic acid and Librium to avoid alcohol withdrawal SCD and heparin for DVT prophylaxis Discharge Planning Discharge patient to home Condition on discharge: Improved Healthy heart Diet as tolerated Ad Carmela activity Rx written: Aspirin 325, pravastatin Follow-up with primary care physician Beulah Reinoso MD Jun 08, 2016 14:40
[2016-06-08] MEDS: CARVEDILOL 3.125 MG TAB PO SCH (21:50)
[2016-06-09] VITALS: BP 136/73; PULSE 75; RESP 20; TEMP 97.5; O2SAT 94
[2016-06-09] MEDS: SODIUM CHLOR 0.9% 1000 ML INJ 1,000 ML IV SCH (03:48)
[2016-06-09 04:00] VITALS: BP 129/71; PULSE 71; RESP 20; TEMP 97.6; O2SAT 92
[2016-06-09] MEDS: INSULIN ASPART SUPPLEMENTAL SCALE SQ SCH (05:32)
[2016-06-09] MEDS: HEPARIN SODIUM - SQ 10,000 UNITS/ML VIAL SQ SCH (05:36)
--- NOTE | 2016-06-09 07:17 | PD.CARD.PN ---
Subjective Subjective Remarks Feels ok. Objective Medications Current Medications Medications (Trade) Dose Ordered Sig/Yasmeen Route Start Time Stop Time Status Last Admin (NS 1000 ml Inj) 1,000 ml @ 70 mls/hr [id number] IV 06/05/16 14:00 06/08/16 12:18 (D50w (Vial) Inj) 25 ml UNSCH PRN IV PUSH 06/05/16 13:45 (Glucagon Inj) 1 mg UNSCH PRN IM/SQ 06/05/16 13:45 (Plavix) 75 mg DAILY PO 06/06/16 09:00 06/08/16 07:34 (Aspirin) 325 mg DAILY PO 06/06/16 09:00 06/08/16 07:34 (NS Flush) 2 ml BID IV FLUSH 06/05/16 21:00 06/08/16 21:51 (NS Flush) 2 ml UNSCH PRN IV FLUSH 06/05/16 14:45 (Vasotec Inj) 1.25 mg Q4H PRN IV 06/05/16 14:45 (Vitamin B1) 100 mg DAILY PO 06/06/16 09:00 06/08/16 07:34 (Librium) 10 mg TID PRN PO 06/05/16 15:30 (Heparin Inj) 5,000 units Q8HR SQ 06/05/16 22:00 06/09/16 05:36 (Pravachol) 40 mg DAILY PO 06/07/16 09:00 06/08/16 07:34 (Augmentin) 875 mg Q12HR PO 06/07/16 21:00 06/12/16 20:59 06/08/16 21:50 (Robitussin Liq) 200 mg Q4H PRN PO 06/07/16 12:00 (Altace) 5 mg DAILY PO 06/09/16 09:00 (Coreg) 3.125 mg Q12HR PO 06/08/16 21:00 06/08/16 21:50 Vital Signs / I&O Vital Signs Date Time Temp Pulse Resp B/P Pulse Ox O2 Delivery O2 Flow Rate FiO2 06/09/16 04:00 97.6 71 20 129/71 92 06/09/16 00:00 97.5 75 20 136/73 94 06/08/16 21:00 59 06/08/16 20:00 96.8 74 20 137/74 93 06/08/16 18:10 96 21 06/08/16 16:00 98.1 67 20 160/87 96 06/08/16 15:00 65 06/08/16 12:00 95.9 69 18 140/83 94 06/08/16 08:00 96.8 74 20 148/90 95 I/O 06/08/16 06/08/16 06/08/16 06/09/16 06/09/16 06/09/16 07:00 15:00 23:00 07:00 15:00 23:00 Intake Total 0 ml 120 ml 0 ml Balance 0 ml 120 ml 0 ml Intake Oral 0 ml 120 ml 0 ml # Voids 1 1 1 # Bowel Movements 0 0 0 Physical Exam GENERAL: Well-nourished, well-developed patient. SKIN: Warm and dry. HEAD: Normocephalic. EYES: No scleral icterus. No injection or drainage. NECK: Supple, trachea midline. No JVD or lymphadenopathy. CARDIOVASCULAR: Regular rate and rhythm without murmurs, gallops, or rubs. RESPIRATORY: Breath sounds equal bilaterally. No accessory muscle use. GASTROINTESTINAL: Abdomen soft, non-tender, nondistended. EXTREMITIES: No cyanosis, or edema. Right sided weakness. NEUROLOGICAL: Awake, alert, and oriented x 3. Mild speech impairment. Imaging Last Impressions Head Magnetic Resonance Angiography 06/05/16 0000 Signed Impressions: Service Date/Time: May 17:39 - CONCLUSION: 1. Moderate focal segmental stenosis involving the left middle cerebral artery just proximal to the bifurcation. 2. Patent right posterior communicating artery. Chris Chaney MD Head CT 06/05/16 0000 Signed Impressions: Service Date/Time: May 11:55 - CONCLUSION: Severe ethmoid sinusitis. No acute intracranial findings. Sharan Busby MD Chest X-Ray 06/05/16 0000 Signed Impressions: Service Date/Time: May 16:23 - CONCLUSION: 1. No acute cardiopulmonary disease. Lei Beavers MD Carotid Artery Ultrasound 06/05/16 0000 Signed Impressions: Service Date/Time: May 15:32 - CONCLUSION: Carotid ultrasound within normal limits. Sharan Busby MD Brain MRI 06/05/16 0000 Signed Impressions: Service Date/Time: May 17:39 - CONCLUSION: 1. Focal signal abnormality involving the left basal ganglia on the diffusion weighted images indicating acute infarct in the left middle cerebral artery distribution. Clinical correlation is recommended. 2. Minimal periventricular white matter small vessel ischemic changes are bilaterally. 3. No acute hemorrhage, midline shift or extra-axial fluid collections. 4. Old lacunar infarct involving the head of the left caudate nucleus. 5. Mucosal thickening involving the bilateral maxillary and ethmoid air cells. Chris Chaney MD Assessment and Plan Problem List: (1) Acute ischemic left MCA stroke Assessment and Plan: Improving R weakness. Neuro following. (2) Cardiomyopathy Assessment and Plan: EF 35%, coreg and altace initiated for medication optimization. Continue current therapy for now. F/U as outpatient. Assessment and Plan Assessment and plan d/w pt., RN, Dr. Perez. Problem Qualifiers (1) Cardiomyopathy: Qualified Code: I42.9 - Cardiomyopathy, unspecified type Catherine Bethea Jun 09, 2016 07:17
[2016-06-09 07:50] VITALS: BP 150/82; PULSE 76; RESP 17; TEMP 96.9; O2SAT 96
--- NOTE | 2016-06-09 08:48 | MB ---
cc: JJ CHAPA MD, HANSCY M.D. DATE OF CONSULTATION: 06/08/2016 REASON FOR CONSULTATION Heart failure, low ejection fraction. HISTORY OF PRESENT ILLNESS Mr. Bowie is a 66-year-old gentleman with no significant history of systemic illness except for high blood pressure, who was admitted due to a neurologic deficit. A Stroke Alert was called on admission that was on June 05, 2016. By the time the patient was evaluated by neurology, symptoms had improved. He still has some slurred speech today. An echocardiogram was performed and indicated ejection fraction around 35-40%. I was consulted for further evaluation and management. The chart was reviewed. The patient was evaluated. ALLERGIES None reported. SOCIAL HISTORY Negative for smoking and drinking. FAMILY HISTORY Noncontributory to his current medical condition. MEDICATIONS Currently he is on: 1. Augmentin. 2. Aspirin. 3. Librium. 4. Plavix. 5. Heparin subcu. 6. Pravachol. 7. Thiamine. REVIEW OF SYSTEMS Currently he refers no chest pain, no chest discomfort, no vomiting, no fever. PHYSICAL EXAMINATION GENERAL: Alert, fully oriented, in bed. VITAL SIGNS: Blood pressure 140/83, pulse 69, respiratory rate 18. LUNGS: Ventilated. CARDIOVASCULAR: S1, S2. No gallop. No murmur. ABDOMEN: Soft. No mass. No bruit. EXTREMITIES: No edema. NEUROLOGIC: No apparent gross motor or sensory deficit. ELECTROCARDIOGRAM Electrocardiogram shows sinus rhythm, no significant acute ST-T wave changes. LABORATORY Hemoglobin 14.8, white blood cell count 4.6. Potassium 3.7. Creatinine 1.3. Total cholesterol 188, HDL 33. INR 1.0. ASSESSMENT AND RECOMMENDATION Mr. Bowie is currently stable. He refers no chest pain, no shortness of breath, no dizziness. The last echo showed an ejection fraction of around 35-40%. His creatinine is okay. JOHAN inhibitor will be initiated. The gentleman will need a nuclear stress study to evaluate for possible ischemia. The gentleman is stable. He can be discharged home. Ischemic work-up can be done as an outpatient if necessary. Angelika Perez MD HS/BT /4:16 PM /8:32 AM
[2016-06-09] MEDS ORDERED: RAMIPRIL 5 MG CAP PO SCH (09:00)
[2016-06-09] MEDS: THIAMINE HCL 100 MG TAB PO SCH (09:18)
[2016-06-09] MEDS: AMOXICILLIN/CLAVULANATE K 875 MG TAB PO SCH (09:18)
[2016-06-09] MEDS: CARVEDILOL 3.125 MG TAB PO SCH (09:18)
[2016-06-09] MEDS: ASPIRIN 325 MG TAB PO SCH (09:18)
[2016-06-09] MEDS: PRAVASTATIN SOD 40 MG TAB PO SCH (09:19)
[2016-06-09] MEDS: SODIUM CHLORIDE 0.9% FLUSH 10 ML FLUSH IV FLUSH SCH (09:19)
[2016-06-09] MEDS: CLOPIDOGREL 75 MG TAB PO SCH (09:19)
[2016-06-09] MEDS ORDERED: CARV3.125 PO (09:36)
[2016-06-09] MEDS ORDERED: AMOX875T2 PO (09:36)
[2016-06-09] MEDS ORDERED: RAMI5CAP PO (09:36)
--- NOTE | 2016-06-09 09:44 | HHI.PR ---
Subjective Remarks Stable no acute neurology deficit Seen by cardiology plan to go for ischemic workup with a stress test and arrhythmia workup as an Objective Vitals Vital Signs Date Time Temp Pulse Resp B/P Pulse Ox O2 Delivery O2 Flow Rate FiO2 06/09/16 07:50 96.9 76 17 150/82 96 06/09/16 04:00 97.6 71 20 129/71 92 06/09/16 00:00 97.5 75 20 136/73 94 06/08/16 21:00 59 06/08/16 20:00 96.8 74 20 137/74 93 06/08/16 18:10 96 21 06/08/16 16:00 98.1 67 20 160/87 96 06/08/16 15:00 65 06/08/16 12:00 95.9 69 18 140/83 94 I/O 06/08/16 06/08/16 06/08/16 06/09/16 06/09/16 06/09/16 07:00 15:00 23:00 07:00 15:00 23:00 Intake Total 0 ml 120 ml 0 ml Balance 0 ml 120 ml 0 ml Intake Oral 0 ml 120 ml 0 ml # Voids 1 1 1 # Bowel Movements 0 0 0 Result Diagram: 06/05/16 1153 Objective Remarks GENERAL: This is a well-nourished, well-developed patient, in no apparent distress. SKIN: No rashes, warm and dry HEAD: Atraumatic. Normocephalic. EYES: Pupils equal round and reactive. Extraocular motions intact. No scleral icterus. ENT: Nose without bleeding, or drainage, Airway patent. NECK: Trachea midline. Supple CARDIOVASCULAR: Regular rate and rhythm without murmurs, gallops, or rubs. RESPIRATORY: Fair air entry bilaterally. Positive rhonchi GASTROINTESTINAL: Abdomen soft, non-tender, nondistended. Positive bowel sounds MUSCULOSKELETAL: Extremities without clubbing, cyanosis, or edema. Pedal pulses appreciated NEUROLOGICAL: Cranial nerves examined positive for right sided facial palsy otherwise normal. Moves all extremity. Normal speech.no focal neurological deficit Procedures none A/P Problem List: (1) Acute ischemic left MCA stroke ICD Code: I63.512 Status: Acute Assessment and Plan 06/07: Appreciate neurology recommendation, continue aspirin and plavix and statin check echocardiogram. If stable and echo with no embolic source, ok by neurology to d/c tomorrow and f /u with me in office in 2 weeks. 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 A/P: Acute CVA small left basal ganglia cva Severe reduced EF 35% without decompensation, cardiomyopathy unspecified acute versus chronic, ischemic versus nonischemic to be decided when patient follow up with cardiology as an outpatient Severe ethmoid sinusitis showed on CT Alcohol abuse Thrombocytopenia platelet 81 could be due to alcoholism we'll monitor Recent URI possible bronchitis with chest x-ray rule out underlying pneumonia Plan: Patient cardiology consultation patient will need ischemic arrhythmic workup, decided to follow up as an outpatient Carotid ultrasound within normal limits MRI of the brain showed acute left MCA, old lacunar infarct, ethmoid thickening mucosa MRA moderate focal segmental stenosis involving left MCA Current ultrasound without normal limits 2-D echo came with advanced reduced EF 35%>> consult cardiology to assess for underlying ischemia The patient for telemetry, NIH scale, neuro check Appreciate neurology consultation Plavix 75 mg daily along with Aspirin 325 mg daily. Permissive hypertension Monitor telemetry rule out a-fib, reviewed lipid panel showed LDL 125>> start pravastatin 40 mg daily Due to history of DVT in the past, hypercoagulable panel to be sure he does not have a hypercoagulable state. Negative chest x-ray Thiamine folic acid and Librium to avoid alcohol withdrawal SCD and heparin for DVT prophylaxis Discharge Planning Discharge patient to home Condition on discharge: Improved Healthy heart Diet as tolerated Ad Carmela activity Rx written: Aspirin 325, pravastatin Follow-up with primary care physician Beulah Reinoso MD Jun 09, 2016 09:44
[2016-06-09 17:54] LABS: THROMBIN TIME FOR LA ND sec (13-19)
--- NOTE | 2016-06-11 16:40 | PD.CONS ---
Assessment and Plan Plan Will follow-up in clinic in 6-8 weeks if needed. Dahlia Jay MD Jun 11, 2016 16:40
== END 2016-06-09 11:42 | disposition home or self-care (01) | DRG 65 ==
LOC: NEPE 11:35 → NEDA 14:52 → N05B 20:31
PROVIDERS: ADMIT Hospitalist; ATTEND Hospitalist
DX: I63.512 Cerebral infarction due to unspecified occlusion or stenosis of left middle cerebral artery (principal); I42.9 Cardiomyopathy, unspecified; I11.0 Hypertensive heart disease with heart failure; D69.59 Other secondary thrombocytopenia; I50.9 Heart failure, unspecified; G83.9 Paralytic syndrome, unspecified; J06.9 Acute upper respiratory infection, unspecified; R29.810 Facial weakness; R47.1 Dysarthria and anarthria; F10.10 Alcohol abuse, uncomplicated; J32.2 Chronic ethmoidal sinusitis; Z79.82 Long term (current) use of aspirin; Z86.711 Personal history of pulmonary embolism; Z86.73 Personal history of transient ischemic attack (TIA), and cerebral infarction without residual deficits
CPT/HCPCS: 70450; 70544; 70551; 71010; 80061; 80307; 81240; 81241; 82435; 82550; 82565; 82746; 82947; 82948; 83036; 84132; 84295; 84520; 85025; 85303; 85306; 85384; 85610; 85613; 85652; 85730; 86038; 86147; 86592; 93005; 93306; 93880; 96360; 96361; J1644; J1815; J7030

== ENCOUNTER 2016-08-29 11:49 | Day surgery (SDC) | payer MEDICARE ==
[~2016-08-29 11:49] MED LIST: ASPI325T PO; CARV3.125 PO; PLAV75TA29 PO; PRAV40TA PO; PROPOFOL 200 MG/20 ML AMP IV ONE; RAMI5CAP PO; VITA100T2 PO
[2016-08-29] MEDS ORDERED: POVIDONE IODINE 5% (ANTISEPSIS KIT) 4 APPLICATIONS EACH NARE PRN (12:30)
[2016-08-29] MEDS ORDERED: INSULIN HUMAN REGULAR 1,000 UNITS/10 ML VIAL SQ PRN (12:30)
[2016-08-29] MEDS ORDERED: SODIUM CHLORID 0.9% 500 ML IV PRN (12:30)
[2016-08-29] MEDS ORDERED: CHLORHEXIDINE GLUCONATE 2 % 1 PACK (2 CLOTHS) TOPICAL PRN (12:30)
[2016-08-29] MEDS ORDERED: LACTATED RINGER'S 1000 ML IV PRN (12:30)
[2016-08-29] MEDS ORDERED: METOPROLOL TARTRATE 25 MG TAB PO PRN (12:30)
[2016-08-29] MEDS ORDERED: GUAI100S7 PO (12:36)
--- NOTE | 2016-08-30 12:07 | EKG ---
Date Performed: 08/29/2016 Time Performed: 12:36:22 PTAGE: 66 years EKG: Sinus rhythm Nonspecific T abnormality Since previous tracing, no significant change noted Borderline ECG PREVIOUS TRACING : 06/05/2016 12.06 DOCTOR: Lei Corcoran Interpretating Date/Time 08/30/2016 12:06:09
--- NOTE | 2016-09-03 22:57 | ECHRPT ---
Indication: cva/tia CONCLUSIONS No clot seen at left atrium, nor left atrial appemndage. No right to left shunt. No PFO Adequate left ventricular wall contractility. EF 60%. BP: / HR: Rhythm: Technical Quality: Medications Complications Proc. Components FINDINGS LEFT VENTRICLE Normal left ventricular size and wall thickness. The left ventricular systolic function is normal wi th an estimated ejection fraction in the range of 60-65%. Left ventricular diastolic function parameters a re normal. RIGHT VENTRICLE Normal right ventricular size and systolic function. LEFT ATRIUM The left atrial size is normal. RIGHT ATRIUM The right atrial size is normal. ATRIAL SEPTUM Normal atrial septal thickness without atrial level shunting by limited color doppler interrogation. AORTA The aortic root and proximal ascending aorta are normal in size on limited imaging. MITRAL VALVE Structurally normal mitral valve. No mitral valve stenosis or regurgitation. AORTIC VALVE Trileaflet aortic valve. No aortic valve stenosis or regurgitation. VESSELS The inferior vena cava is normal in size. PULMONARY VALVE The pulmonary valve is not well visualized. PERICADIUM No pericardial effusion. Angelika Perez MD (Electronically Signed) Final Date:03 September 2016 22:55
== END 2016-08-29 15:44 | disposition home or self-care (01) ==
LOC: HECH 11:49 → HDIC 11:49 → HECH 15:44
PROVIDERS: ATTEND Internal Medicine Interventional Cardiology
DX: I42.9 Cardiomyopathy, unspecified (principal); Z86.718 Personal history of other venous thrombosis and embolism; Z86.711 Personal history of pulmonary embolism; Z86.73 Personal history of transient ischemic attack (TIA), and cerebral infarction without residual deficits
CPT/HCPCS: 01922; 93005; 93312; 93320; 93325; J7040

== ENCOUNTER 2017-03-08 08:39 | Inpatient (IN) | payer OTHER, MEDICARE ==
[2017-03-08] VITALS (11 sets, daily range): BP systolic 120–185; BP diastolic 69–106; PULSE 70–105; RESP 14–28; TEMP 96.4–97.8; O2SAT 83–99
[~2017-03-08] VITALS: Ht 177.8 cm; Wt 81.6 kg
[~2017-03-08 08:39] MED LIST changes: +ASPI-183 PO; -ASPI325T PO; +GUAI100S7 PO; -PROPOFOL 200 MG/20 ML AMP IV ONE; -VITA100T2 PO
[2017-03-08] MEDS ORDERED: ATOR40TA16 PO (08:54)
--- NOTE | 2017-03-08 08:57 | PD ---
HPI Chief Complaint: Respiratory Symptoms Time Seen by Provider: 08:46 Travel History International Travel<30 days: No Contact w/Intl Traveler<30days: No Traveled to known affect area: No History of Present Illness HPI The patient is a 66-year-old male who presents emergency department for shortness of breath. The patient states his symptoms started last night with a runny nose, when he awakened this morning short of breath. The patient states he short of breath at rest, this is worse with exertion. He denies any orthopnea or paroxysmal nocturnal dyspnea. The patient denies any history of similar symptoms and denies any history of COPD, congestive heart failure, or chronic bronchitis. He does note a dry nonproductive cough with the shortness of breath. He does note wheezing, denies any chest pain. He denies any fever, chills, or sweats. He denies any edema to lower extremities. He denies any history of pulmonary embolism or DVT. He does have a history of previous CVA for which she takes aspirin or Plavix. Symptoms are moderate, exacerbated with any type of activity, but there are no alleviating factors. PFSH Past Medical History Cancer: No Cardiovascular Problems: Yes Chemotherapy: No Cerebrovascular Accident: Yes Endocrine: No Genitourinary: No Immune Disorder: No Musculoskeletal: No Neurologic: Yes Psychiatric: No Reproductive: No Respiratory: Yes Radiation Therapy: No Past Surgical History Thoracic Surgery: Yes (tonsillectomy) Other Surgery: Yes Social History Alcohol Use: No Tobacco Use: No Substance Use: No Allergies-Medications (Allergen,Severity, Reaction): Coded Allergies: No Known Allergies (Unverified Adverse Reaction, Unknown, 03/08/17) Reported Meds & Prescriptions Reported Meds & Active Scripts Active Coreg (Carvedilol) 3.125 Mg Tab 3.125 Mg PO Q12HR Ramipril 5 Mg Cap 5 Mg PO DAILY Plavix (Clopidogrel Bisulfate) 75 Mg Tab 75 Mg PO DAILY Reported Atorvastatin (Atorvastatin Calcium) 40 Mg Tab 40 Mg PO HS Review of Systems Except as stated in HPI: all other systems reviewed are Neg General / Constitutional: No: Fever HENT: Positive: Rhinitis Cardiovascular: Positive: Dyspnea on exertion, No: Chest Pain or Discomfort Respiratory: Positive: Cough, Shortness of Breath Gastrointestinal: No: Nausea, Vomiting, Abdominal Pain Musculoskeletal: No: Edema Physical Exam Narrative GENERAL: Awake, alert, 66-year-old male appears his stated age and appears in moderate respiratory distress. SKIN: Focused skin assessment warm/dry. Slightly pale complexion. HEAD: Atraumatic. Normocephalic. EYES: Pupils equal and round. No scleral icterus. No injection or drainage. ENT: No nasal bleeding or discharge. Mucous membranes pink and moist. NECK: Trachea midline. No JVD. CARDIOVASCULAR: Regular rate and rhythm. No murmur appreciated. Heart rate in the 90s. RESPIRATORY: Tachypnea with a respiratory rate of 26. Diminished breath sounds in the bases with diffuse wheezing. GASTROINTESTINAL: Abdomen soft, non-tender, nondistended. No rebound tenderness. MUSCULOSKELETAL: No obvious deformities. No clubbing. No cyanosis. No edema. NEUROLOGICAL: Awake and alert. No obvious cranial nerve deficits. Motor grossly within normal limits. Normal speech. PSYCHIATRIC: Appropriate mood and affect; insight and judgment normal. Data Data Last Documented VS Vital Signs Date Time Temp Pulse Resp B/P (MAP) Pulse Ox O2 Delivery O2 Flow Rate FiO2 03/08/17 11:15 90 20 138/78 (98) 95 Nasal Cannula 3.00 03/08/17 09:19 97.8 Orders Orders Complete Blood Count With Diff (03/08/17 08:50) Comprehensive Metabolic Panel (03/08/17 08:50) B-Type Natriuretic Peptide (03/08/17 08:50) Act Partial Throm Time (Ptt) (03/08/17 08:50) Prothrombin Time / Inr (Pt) (03/08/17 08:50) Magnesium (Mg) (03/08/17 08:50) Ckmb (Isoenzyme) Profile (03/08/17 08:50) Troponin I (03/08/17 08:50) Blood Culture (03/08/17 08:50) Iv Access Insert/Monitor (03/08/17 08:50) Electrocardiogram (03/08/17 08:50) Ecg Monitoring (03/08/17 08:50) Oximetry (03/08/17 08:50) Oxygen Administration (03/08/17 08:50) Chest, Single Ap (03/08/17 08:50) Sodium Chloride 0.9% Flush (Ns Flush) (03/08/17 09:00) Methylprednisolone So Succ Inj (Solumedr (03/08/17 09:00) Albuterol-Ipratropium Neb (Duoneb Neb) (03/08/17 09:00) Aspirin Chew (Aspirin Chew) (03/08/17 09:00) Ct Pulmonary Angiogram (03/08/17 ) Iohexol 350 Inj (Omnipaque 350 Inj) (03/08/17 10:38) Admit Order (Ed Use Only) (03/08/17 11:32) Labs Laboratory Tests Test 03/08/17 08:50 White Blood Count 9.8 TH/MM3 Red Blood Count 5.17 MIL/MM3 Hemoglobin 15.3 GM/DL Hematocrit 46.9 % Mean Corpuscular Volume 90.7 FL Mean Corpuscular Hemoglobin 29.6 PG Mean Corpuscular Hemoglobin Concent 32.7 % Red Cell Distribution Width 12.2 % Platelet Count 107 TH/MM3 Mean Platelet Volume 8.7 FL Neutrophils (%) (Auto) 74.0 % Lymphocytes (%) (Auto) 10.0 % Monocytes (%) (Auto) 5.9 % Eosinophils (%) (Auto) 6.4 % Basophils (%) (Auto) 3.7 % Neutrophils # (Auto) 7.1 TH/MM3 Lymphocytes # (Auto) 1.0 TH/MM3 Monocytes # (Auto) 0.6 TH/MM3 Eosinophils # (Auto) 0.6 TH/MM3 Basophils # (Auto) 0.4 TH/MM3 CBC Comment DIFF FINAL Differential Comment Prothrombin Time 10.2 SEC Prothromb Time International Ratio 1.0 RATIO Activated Partial Thromboplast Time 24.3 SEC Blood Urea Nitrogen 10 MG/DL Creatinine 1.10 MG/DL Random Glucose 147 MG/DL Total Protein 7.1 GM/DL Albumin 3.9 GM/DL Calcium Level 8.8 MG/DL Magnesium Level 1.9 MG/DL Alkaline Phosphatase 98 U/L Aspartate Amino Transf (AST/SGOT) 28 U/L Alanine Aminotransferase (ALT/SGPT) 41 U/L Total Bilirubin 0.7 MG/DL Sodium Level 141 MEQ/L Potassium Level 3.9 MEQ/L Chloride Level 103 MEQ/L Carbon Dioxide Level 31.9 MEQ/L Anion Gap 6 MEQ/L Estimat Glomerular Filtration Rate 67 ML/MIN Total Creatine Kinase 69 U/L Troponin I LESS THAN 0.02 NG/ML B-Type Natriuretic Peptide 103 PG/ML MDM Medical Decision Making Medical Screen Exam Complete: Yes Emergency Medical Condition: Yes Medical Record Reviewed: Yes Interpretation(s) EKG reveals normal sinus rhythm with a rate in 94. Nonspecific T wave changes. Laboratory Tests Test 03/08/17 08:50 White Blood Count 9.8 TH/MM3 Red Blood Count 5.17 MIL/MM3 Hemoglobin 15.3 GM/DL Hematocrit 46.9 % Mean Corpuscular Volume 90.7 FL Mean Corpuscular Hemoglobin 29.6 PG Mean Corpuscular Hemoglobin Concent 32.7 % Red Cell Distribution Width 12.2 % Platelet Count 107 TH/MM3 Mean Platelet Volume 8.7 FL Neutrophils (%) (Auto) 74.0 % Lymphocytes (%) (Auto) 10.0 % Monocytes (%) (Auto) 5.9 % Eosinophils (%) (Auto) 6.4 % Basophils (%) (Auto) 3.7 % Neutrophils # (Auto) 7.1 TH/MM3 Lymphocytes # (Auto) 1.0 TH/MM3 Monocytes # (Auto) 0.6 TH/MM3 Eosinophils # (Auto) 0.6 TH/MM3 Basophils # (Auto) 0.4 TH/MM3 CBC Comment DIFF FINAL Differential Comment Prothrombin Time 10.2 SEC Prothromb Time International Ratio 1.0 RATIO Activated Partial Thromboplast Time 24.3 SEC Blood Urea Nitrogen 10 MG/DL Creatinine 1.10 MG/DL Random Glucose 147 MG/DL Total Protein 7.1 GM/DL Albumin 3.9 GM/DL Calcium Level 8.8 MG/DL Magnesium Level 1.9 MG/DL Alkaline Phosphatase 98 U/L Aspartate Amino Transf (AST/SGOT) 28 U/L Alanine Aminotransferase (ALT/SGPT) 41 U/L Total Bilirubin 0.7 MG/DL Sodium Level 141 MEQ/L Potassium Level 3.9 MEQ/L Chloride Level 103 MEQ/L Carbon Dioxide Level 31.9 MEQ/L Anion Gap 6 MEQ/L Estimat Glomerular Filtration Rate 67 ML/MIN Total Creatine Kinase 69 U/L Troponin I LESS THAN 0.02 NG/ML B-Type Natriuretic Peptide 103 PG/ML Last Impressions Chest X-Ray 03/08/17 0850 Signed Impressions: Service Date/Time: Wednesday, March 08, 2017 09:55 - CONCLUSION: No acute disease. Tima Diop MD CT Angiography 03/08/17 0000 Signed Impressions: Service Date/Time: Wednesday, March 08, 2017 10:27 - CONCLUSION: 1. No pulmonary embolus. 2. 6 mm nodule in the left upper lung with a calcification. This has fairly benign features. It could be followed with a noncontrast CT examination 6-12 months. 3. Gallstone Tima Diop MD Differential Diagnosis Differential diagnosis includes bronchitis, pneumonia, pulmonary embolism, COPD exacerbation, cardiomyopathy, aortic stenosis, pleural effusion, viral syndrome. Narrative Course IV was established, labs are drawn and sent, and the patient was placed on cardiac telemetry monitoring and continuous pulse oximetry monitoring. The patient's initial oxygen saturation was 83% on room air, the patient was placed on O2 via nasal cannula which brought his oxygen saturation up to 95%. EKG was ordered and interpreted. Chest x-ray was obtained. The patient was administered Solu-Medrol and DuoNeb's 3. Chest x-ray was unremarkable. The patient's symptoms did improve, however, he still required 3 L of oxygen via nasal cannula to maintain an O2 sat of 89-91%. Therefore, CT pulmonary angiogram was ordered to rule out pulmonary embolism. CT was negative for PE, does reveal a 6 mm nodule in the left upper lung with a calcification, will need repeat noncontrast CT in 6-12 months. As the patient continues to be hypoxic, he will require admission for steroids, duo nebs, and oxygen until he is no longer hypoxic and is able to ambulate without symptoms. The patient has [employer], therefore, [facility] were paged for admission. Sepsis Criteria SIRS Criteria (2 or more): Heart rate over 90, RR > 20 or PaCO2 < 32 Physician Communication Physician Communication [facility] were paged for admission. I discussed the patient with Dr. Velasco who agrees with admission. Diagnosis Primary Impression: Hypoxia Additional Impression: Bronchospasm Admitting Information Admitting Physician Requests: Admit Condition: Stable Thomas Menon MD Mar 08, 2017 08:57
[2017-03-08] MEDS ORDERED: ASPIRIN 81 MG CHEW TAB CHEW ONE (09:00)
[2017-03-08] MEDS ORDERED: methylPREDNISolone SOD SUCC 125 MG/2 ML VIAL IV PUSH ONE (09:00)
[2017-03-08] MEDS ORDERED: SODIUM CHLORIDE 0.9% FLUSH 10 ML FLUSH IVF PRN (09:00)
[2017-03-08] MEDS: RESP: ALBUTEROL 2.5 MG/IPRATROPIUM 0.5 MG NEB (SCH) INH ×2 (09:01→09:02)
[2017-03-08 09:02] LABS: AUTOMATED NEUTROPHIL # 7.1 TH/MM3 (1.8-7.7); BASOPHIL # 0.4 TH/MM3 (0-0.2); BASOPHIL % 3.7 % (0.0-2.0); EOSINOPHIL # 0.6 TH/MM3 (0-0.4); EOSINOPHIL % 6.4 % (0.0-4.0); HEMATOCRIT 46.9 % (39.0-51.0); HEMOGLOBIN 15.3 GM/DL (13.0-17.0); MEAN CELL VOLUME 90.7 FL (80.0-100.0); MEAN CORPUSCULAR HEMOGLOBIN 29.6 PG (27.0-34.0); MEAN CORPUSCULAR HGB CONC 32.7 % (32.0-36.0); MEAN PLATELET VOLUME 8.7 FL (7.0-11.0); MONO % 5.9 % (0.0-8.0); MONOCYTE # 0.6 TH/MM3 (0-0.9); PLATELET COUNT 107 TH/MM3 (150-450); RED BLOOD COUNT 5.17 MIL/MM3 (4.50-5.90); RED CELL DISTRIBUTION WIDTH 12.2 % (11.6-17.2); WHITE BLOOD COUNT 9.8 TH/MM3 (4.0-11.0)
[2017-03-08 09:12] LABS: CHLORIDE 103 MEQ/L (98-107); SODIUM (NA) 141 MEQ/L (136-145)
[2017-03-08 09:16] LABS: ALBUMIN 3.9 GM/DL (3.4-5.0); BICARBONATE 31.9 MEQ/L (21.0-32.0); BLOOD UREA NITROGEN 10 MG/DL (7-18); CALCIUM 8.8 MG/DL (8.5-10.1); GLUCOSE,RANDOM 147 MG/DL (74-106); MAGNESIUM 1.9 MG/DL (1.5-2.5)
[2017-03-08 09:19] LABS: ALT (GPT) 41 U/L (12-78); AST (GOT) 28 U/L (15-37); GLOMERULAR FILTRATION RATE 67 ML/MIN (>89)
[2017-03-08 09:21] LABS: TOTAL BILIRUBIN ADULT 0.7 MG/DL (0.2-1.0); TOTAL PROTEIN 7.1 GM/DL (6.4-8.2)
[2017-03-08 09:22] LABS: ALKALINE PHOSPHATASE 98 U/L (45-117)
[2017-03-08 09:24] LABS: TROPONIN I LESS THAN 0.02 NG/ML (0.02-0.05)
[2017-03-08 09:26] LABS: PROTHROMBIN TIME - PATIENT 10.2 SEC (9.8-11.6)
--- NOTE | 2017-03-08 10:06 | RADRPT ---
EXAM DATE/TIME: 03/08/2017 09:55 [facility] COMPARISON: CHEST SINGLE AP, June 05, 2016, 16:23. INDICATIONS : Short of breath MEDICAL HISTORY : Stroke. SURGICAL HISTORY : None. ENCOUNTER: Initial ACUITY: 1 day PAIN SCORE: 0/10 LOCATION: Bilateral chest FINDINGS: A single view of the chest demonstrates the lungs to be symmetrically aerated without evidence of mas s, infiltrate or effusion. The cardiomediastinal contours are unremarkable. Osseous structures are intact. CONCLUSION: No acute disease. Tima Diop MD on March 08, 2017 at 10:04 Board Certified Radiologist. This report was verified electronically.
[2017-03-08] MEDS ORDERED: IOHEXOL 350 MG/ML 10 ML VIAL (for RAD DIAG) IVCONTRAST ONE (10:38)
--- NOTE | 2017-03-08 10:54 | RADRPT ---
EXAM DATE/TIME: 03/08/2017 10:27 [facility] COMPARISON: No previous studies available for comparison. INDICATIONS : Acute shortness of breath. Evaluate for pulmonary embolism. IV CONTRAST: 65 cc Omnipaque 350 (iohexol) IV RADIATION DOSE: 12.99 CTDIvol (mGy) MEDICAL HISTORY : Cerebrovascular disease. Deep venous thrombosis. Pulmonary embolism. SURGICAL HISTORY : Tonsillectomy. ENCOUNTER: Initial ACUITY: 1 day PAIN SCALE: 0/10 LOCATION: chest TECHNIQUE: Volumetric scanning of the chest was performed using a pulmonary embolism protocol MIP images were re constructed. Using automated exposure control and adjustment of the mA and/or kV according to patien t size, radiation dose was kept as low as reasonably achievable to obtain optimal diagnostic quality images. DICOM format image data is available electronically for review and comparison. Follow-up recommendations for detected pulmonary nodules are based at a minimum on nodule size and pa tient risk factors according to Fleischner Society Guidelines. FINDINGS: PULMONARY ARTERIES: No filling defects are seen in the pulmonary arteries through the segmental level. LUNGS: There is a smooth 6 mm nodule in the right upper lung with a calcification. There are spurs be a calc ified granuloma at the left lateral lung base. PLEURAE: There is no pleural thickening or pleural effusion. MEDIASTINUM: Normal size lymph nodes are seen the mediastinum and hilar regions. Enlarged adenopathy is not clearl y appreciated. There are a few coronary artery calcifications present. MUSCULOSKELETAL: Within normal limits for patient age. MISCELLANEOUS: The visualized upper abdominal organs demonstrate no acute abnormality. There is a small calcified ga llstone seen. CONCLUSION: 1. No pulmonary embolus. 2. 6 mm nodule in the left upper lung with a calcification. This has fairly benign features. It could be followed with a noncontrast CT examination 6-12 months. 3. Gallstone Tima Diop MD on March 08, 2017 at 10:46 Board Certified Radiologist. This report was verified electronically.
[2017-03-08] MEDS ORDERED: LACTULOSE SYRUP 20 GM/30 ML CUP PO PRN (12:00)
[2017-03-08] MEDS ORDERED: ONDANSETRON HCL 4 MG/2 ML VIAL IVP PRN (12:00)
[2017-03-08] MEDS ORDERED: ACETAMINOPHEN 325 MG TAB PO PRN (12:00)
[2017-03-08] MEDS ORDERED: NALOXONE HCL 0.4 MG/ML AMP IV PUSH PRN (12:00)
[2017-03-08] MEDS ORDERED: MAGNESIUM HYDROXIDE SUSP 30 ML CUP PO PRN (12:00)
[2017-03-08] MEDS ORDERED: TEMAZEPAM 15 MG CAP PO PRN (12:00)
[2017-03-08] MEDS ORDERED: BISACODYL 10 MG SUPP RECTAL PRN (12:00)
[2017-03-08] MEDS ORDERED: RESP: ALBUTEROL 2.5 MG/IPRATROPIUM 0.5 MG NEB (PRN) NEB (12:00)
[2017-03-08] MEDS ORDERED: SENNOSIDES 8.6 MG TAB PO PRN (12:00)
[2017-03-08] MEDS ORDERED: SODIUM CHLORIDE 0.9% FLUSH 10 ML FLUSH IV FLUSH PRN (12:00)
[2017-03-08] MEDS: RESP: ALBUTEROL 2.5 MG/IPRATROPIUM 0.5 MG NEB (SCH) NEB ×3 (12:42→19:12)
--- NOTE | 2017-03-08 12:42 | EKG ---
Date Performed: 03/08/2017 Time Performed: 08:44:44 PTAGE: 66 years EKG: Sinus rhythm BASELINE ARTIFACT NONSPECIFIC T-WAVE ABNORMALITY BORDERLINE ECG INTERPRETATION BASED ON A DEFAULT AG E OF 40 YEARS Compared to the PREVIOUS TRACING from 08/29/16, no significant change DOCTOR: El Kuhn Interpretating Date/Time 03/08/2017 12:41:33
[2017-03-08] MEDS: ENOXAPARIN SODIUM 40 MG/0.4 ML SYRINGE SQ SCH (13:00)
[2017-03-08] MEDS: methylPREDNISolone SOD SUCC 40 MG/1 ML VIAL IV PUSH SCH ×2 (14:24→17:48)
--- NOTE | 2017-03-08 14:24 | HHI.HP ---
HPI Service [facility] Primary Care Physician Kit Johnson MD Admission Diagnosis Hypoxia, bronchitis, bronchospasm Diagnoses: Chief Complaint: Shortness of breath Travel History International Travel<30 Days: No Contact w/Intl Traveler <30 Da: No Traveled to Known Affected Are: No History of Present Illness Pleasant 66 yo male, with PMH of HTN, came for eval of SOB x 1 day. Shortness of breath this am getting worse. Does admit to having a cold with runny nose and woke up with worsening shortness of breath. Says she was never diagnosed with COPD. Denies any cough. Denies any fever, chills. No chest ain or sob.No n/vd/c. No urinary complains. Review of Systems Constitutional: DENIES: Fever, Chills Eyes: DENIES: Blurred vision, Diplopia Respiratory: COMPLAINS OF: Apneas, Cough, Shortness of breath, DENIES: Sputum production Cardiovascular: DENIES: Chest pain Gastrointestinal: DENIES: Abdominal pain, Constipation, Nausea, Vomiting Musculoskeletal: DENIES: Joint pain Integumentary: DENIES: Abnormal pigmentation Neurologic: DENIES: Abnormal gait, Headache Psychiatric: DENIES: Anxiety Except as stated in HPI: all other systems reviewed are Neg Past Family Social History Past Medical History History of CVA in May on Plavix Past Surgical History Tonsillectomy Left knee arthroscopy Reported Medications Active Coreg (Carvedilol) 3.125 Mg Tab 3.125 Mg PO Q12HR Ramipril 5 Mg Cap 5 Mg PO DAILY Plavix (Clopidogrel Bisulfate) 75 Mg Tab 75 Mg PO DAILY Reported Atorvastatin (Atorvastatin Calcium) 40 Mg Tab 40 Mg PO HS Allergies: Coded Allergies: No Known Allergies (Verified Allergy, Unknown, 03/08/17) Active Ordered Medications Current Medications Medications (Trade) Dose Ordered Sig/Yasmeen Route Start Time Stop Time Status Last Admin (NS Flush) 2 ml UNSCH PRN IV FLUSH 03/08/17 12:00 (NS Flush) 2 ml BID IV FLUSH 03/08/17 21:00 (Tylenol) 650 mg Q4H PRN PO 03/08/17 12:00 (Zofran Inj) 4 mg Q6H PRN IVP 03/08/17 12:00 (Restoril) 15 mg HS PRN PO 03/08/17 12:00 (Lovenox Inj) 40 mg Q24H SQ 03/08/17 13:00 (Narcan Inj) 0.4 mg UNSCH PRN IV PUSH 03/08/17 12:00 (Clare-Colace) 1 tab BID PO 03/08/17 21:00 (Milk Of Magnesia Liq) 30 ml Q12H PRN PO 03/08/17 12:00 (Senokot) 17.2 mg Q12H PRN PO 03/08/17 12:00 (Dulcolax Supp) 10 mg DAILY PRN RECTAL 03/08/17 12:00 (Lactulose Liq) 30 ml DAILY PRN PO 03/08/17 12:00 (Duoneb Neb) 1 ampule Q4HR WHILE AWAKE NEB NEB 03/08/17 12:00 03/08/17 12:42 (Duoneb Neb) 1 ampule Q2HR NEB PRN NEB 03/08/17 12:00 (SoluMEDROL INJ) 40 mg Q6HR IV PUSH 03/08/17 13:00 03/08/17 14:24 Family History Paternal medical history significant for MA at age of 59 years. Maternal medical history significant for brain aneurysm. Social History Denies any tobacco use, alcohol use, or illicit drug use. Physical Exam Vital Signs Vital Signs Date Time Temp Pulse Resp B/P (MAP) Pulse Ox O2 Delivery O2 Flow Rate FiO2 03/08/17 13:30 97.5 83 14 151/93 (112) 96 03/08/17 13:23 03/08/17 12:44 94 Nasal Cannula 3.00 03/08/17 12:13 70 20 134/78 (96) 98 Nasal Cannula 2.00 03/08/17 11:15 90 20 138/78 (98) 95 Nasal Cannula 3.00 03/08/17 10:15 73 22 120/70 (87) 93 Nasal Cannula 3.00 03/08/17 09:19 97.8 85 22 148/77 (100) 99 03/08/17 08:53 95 Nasal Cannula 2.00 03/08/17 08:53 95 Nasal Cannula 2.00 03/08/17 08:49 97.8 105 28 185/106 (056) 83 Physical Exam GENERAL: This is a well-nourished, well-developed patient, lying in bed on supplemental O2 in no apparent distress. SKIN: No rashes, ecchymoses or lesions. Warm and dry. HEAD: Atraumatic. Normocephalic. EYES: Pupils equal round and reactive. Extraocular motions intact. No scleral icterus. No injection or drainage. ENT: Nose without bleeding, purulent drainage or septal hematoma. Throat without erythema, tonsillar hypertrophy or exudate. Uvula midline. Airway patent. NECK: Trachea midline. No JVD. Supple. CARDIOVASCULAR: Regular rate and rhythm without murmurs, gallops, or rubs. RESPIRATORY: Posterior scattered wheezing, more on right side. Breath sounds equal bilaterally. No wheezes, rales, or rhonchi. GASTROINTESTINAL: Abdomen soft, non-tender, nondistended. No guarding. MUSCULOSKELETAL: Extremities without clubbing, cyanosis, or edema. No joint tenderness, effusion, or edema noted. NEUROLOGICAL: Awake and alert. Cranial nerves II through XII intact. Motor and sensory grossly within normal limits. Five out of 5 muscle strength in all muscle groups. Normal speech. Laboratory Laboratory Tests Test 03/08/17 08:50 03/08/17 12:25 White Blood Count 9.8 Red Blood Count 5.17 Hemoglobin 15.3 Hematocrit 46.9 Mean Corpuscular Volume 90.7 Mean Corpuscular Hemoglobin 29.6 Mean Corpuscular Hemoglobin Concent 32.7 Red Cell Distribution Width 12.2 Platelet Count 107 Mean Platelet Volume 8.7 Neutrophils (%) (Auto) 74.0 Lymphocytes (%) (Auto) 10.0 Monocytes (%) (Auto) 5.9 Eosinophils (%) (Auto) 6.4 Basophils (%) (Auto) 3.7 Neutrophils # (Auto) 7.1 Lymphocytes # (Auto) 1.0 Monocytes # (Auto) 0.6 Eosinophils # (Auto) 0.6 Basophils # (Auto) 0.4 CBC Comment DIFF FINAL Differential Comment Prothrombin Time 10.2 Prothromb Time International Ratio 1.0 Activated Partial Thromboplast Time 24.3 Blood Urea Nitrogen 10 Creatinine 1.10 Random Glucose 147 Total Protein 7.1 Albumin 3.9 Calcium Level 8.8 Magnesium Level 1.9 Alkaline Phosphatase 98 Aspartate Amino Transf (AST/SGOT) 28 Alanine Aminotransferase (ALT/SGPT) 41 Total Bilirubin 0.7 Sodium Level 141 Potassium Level 3.9 Chloride Level 103 Carbon Dioxide Level 31.9 Anion Gap 6 Estimat Glomerular Filtration Rate 67 Total Creatine Kinase 69 Troponin I LESS THAN 0.02 B-Type Natriuretic Peptide 103 Blood Gas Puncture Site RT RADIAL Blood Gas Patient Temperature 98.6 Blood Gas HCO3 29 Blood Gas Base Excess 4.4 Blood Gas Oxygen Saturation 93 Arterial Blood pH 7.44 Arterial Blood Partial Pressure CO2 43 Arterial Blood Partial Pressure O2 77 Arterial Blood Oxygen Content 19.6 Arterial Blood Carboxyhemoglobin 1.4 Arterial Blood Methemoglobin 1.0 Blood Gas Hemoglobin 15.0 Oxygen Delivery Device NASAL CANNULA Blood Gas Liter Flow 3 Date/Time Source Procedure Growth Status 03/08/17 09:00 Blood Peripheral Aerobic Blood Culture Pending Received 03/08/17 09:00 Blood Peripheral Anaerobic Blood Culture Pending Received Result Diagram: 03/08/17 0850 03/08/17 0850 Imaging Last Impressions Chest X-Ray 03/08/17 0850 Signed Impressions: Service Date/Time: Wednesday, March 08, 2017 09:55 - CONCLUSION: No acute disease. Tima Diop MD CT Angiography 03/08/17 0000 Signed Impressions: Service Date/Time: Wednesday, March 08, 2017 10:27 - CONCLUSION: 1. No pulmonary embolus. 2. 6 mm nodule in the left upper lung with a calcification. This has fairly benign features. It could be followed with a noncontrast CT examination 6-12 months. 3. Gallstone Tima Diop MD Septic Shock Reassessment Septic shock perfusion: reassessment completed Caprini VTE Risk Assessment Caprini VTE Risk Assessment: Mod/High Risk (score >= 2) Caprini Risk Assessment Model Point Value = 1 Point Value = 2 Point Value = 3 Point Value = 5 Age 41-60 Minor surgery BMI > 25 kg/m2 Swollen legs Varicose veins or History of unexplained or recurrent spontaneous Oral contraceptives or hormone replacement Sepsis (< 1 month) Serious lung disease, including pneumonia (< 1 month) Abnormal pulmonary function Acute myocardial infarction Congestive heart failure (< 1 month) History of inflammatory bowel disease Medical patient at bed rest Age 61-74 Arthroscopic surgery Major open surgery (> 45 min) Laparoscopic surgery (> 45 min) Malignancy Confined to bed (> 72 hours) Immobilizing plaster cast Central venous access Age >= 75 History of VTE Family history of VTE Factor V Leiden Prothrombin [id number] Lupus anticoagulant Anticardiolipin antibodies Elevated serum homocysteine Heparin-induced thrombocytopenia Other congenital or acquired thrombophilia Stroke (< 1 month) Elective arthroplasty Hip, pelvis, or leg fracture Acute spinal cord injury (< 1 month) Prophylaxis Regimen Total Risk Factor Score Risk Level Prophylaxis Regimen 0-1 Low Early ambulation 2 Moderate Order ONE of the following: *Sequential Compression Device (SCD) *Heparin 5000 units SQ BID 3-4 Higher Order ONE of the following medications: *Heparin 5000 units SQ TID *Enoxaparin/Lovenox 40 mg SQ daily (WT < 150 kg, CrCl > 30 mL/min) *Enoxaparin/Lovenox 30 mg SQ daily (WT < 150 kg, CrCl > 10-29 mL/min) *Enoxaparin/Lovenox 30 mg SQ BID (WT < 150 kg, CrCl > 30 mL/min) AND/OR *Sequential Compression Device (SCD) 5 or more Highest Order ONE of the following medications: *Heparin 5000 units SQ TID (Preferred with Epidurals) *Enoxaparin/Lovenox 40 mg SQ daily (WT < 150 kg, CrCl > 30 mL/min) *Enoxaparin/Lovenox 30 mg SQ daily (WT < 150 kg, CrCl > 10-29 mL/min) *Enoxaparin/Lovenox 30 mg SQ BID (WT < 150 kg, CrCl > 30 mL/min) AND *Sequential Compression Device (SCD) Assessment and Plan Assessment and Plan Pleasant 66 yo male with PMH of HTN with COPD with exacerbation Hypoxia However patient says she has no COPD Started steroids IV taper as tolerated. Duonebs taper aslo O2 supplement keep O2 sat > 94% Restart home meds as appropriate Physician Certification 2 Midnight Certification Type: Admission for Inpatient Services Order for Inpatient Services The services are ordered in accordance with Medicare regulations or non- Medicare payer requirements, as applicable. In the case of services not specified as inpatient-only, they are appropriately provided as inpatient services in accordance with the 2-midnight benchmark. Estimated LOS (days): 3 days is the estimated time the patient will need to remain in the hospital, assuming treatment plan goals are met and no additional complications. Post-Hospital Plan: Home Cosma,Cydney MD Mar 08, 2017 14:24 Danyell Waters Mar 08, 2017 14:52
[2017-03-08] MEDS: DOCUSATE SODIUM 50 MG/SENNA 8.6 MG TAB PO SCH (21:33)
[2017-03-09] VITALS: BP 120/67; PULSE 90; RESP 20; TEMP 97.4; O2SAT 98
[2017-03-09] MEDS: methylPREDNISolone SOD SUCC 40 MG/1 ML VIAL IV PUSH SCH ×3 (00:26→11:04)
[2017-03-09] MEDS: SODIUM CHLORIDE 0.9% FLUSH 10 ML FLUSH IV FLUSH SCH ×2 (00:27→08:35)
[2017-03-09 04:00] VITALS: O2SAT 96
[2017-03-09 06:53] LABS: AUTOMATED NEUTROPHIL # 10.7 TH/MM3 (1.8-7.7); BASOPHIL % 0.1 % (0.0-2.0); EOSINOPHIL % 0.1 % (0.0-4.0); HEMATOCRIT 41.6 % (39.0-51.0); HEMOGLOBIN 13.7 GM/DL (13.0-17.0); LYMPH % 4.5 % (9.0-44.0); LYMPHOCYTE # 0.5 TH/MM3 (1.0-4.8); MEAN CELL VOLUME 91.3 FL (80.0-100.0); MEAN CORPUSCULAR HEMOGLOBIN 30.2 PG (27.0-34.0); MEAN PLATELET VOLUME 9.3 FL (7.0-11.0); MONO % 1.8 % (0.0-8.0); MONOCYTE # 0.2 TH/MM3 (0-0.9); NEUT % 93.5 % (16.0-70.0); PLATELET COUNT 103 TH/MM3 (150-450); RED BLOOD COUNT 4.55 MIL/MM3 (4.50-5.90); RED CELL DISTRIBUTION WIDTH 12.1 % (11.6-17.2); WHITE BLOOD COUNT 11.4 TH/MM3 (4.0-11.0)
[2017-03-09 07:02] LABS: CALCIUM 8.9 MG/DL (8.5-10.1)
[2017-03-09 07:03] LABS: BICARBONATE 29.2 MEQ/L (21.0-32.0)
[2017-03-09 07:06] LABS: CREATININE 1.1 MG/DL (0.60-1.30)
[2017-03-09] MEDS: RESP: ALBUTEROL 2.5 MG/IPRATROPIUM 0.5 MG NEB (SCH) NEB ×2 (07:30→11:30)
[2017-03-09 07:32] VITALS: O2SAT 94
[2017-03-09 07:50] VITALS: BP 115/59; PULSE 93; RESP 20; TEMP 96.4; O2SAT 96
[2017-03-09] MEDS: DOCUSATE SODIUM 50 MG/SENNA 8.6 MG TAB PO SCH (08:35)
[2017-03-09] MEDS ORDERED: PNEUMOCOCCAL POLYVALENT INJ 25 MCG/0.5 ML SYR IM ONE (10:00)
[2017-03-09] MEDS: ENOXAPARIN SODIUM 40 MG/0.4 ML SYRINGE SQ SCH (11:48)
[2017-03-09 11:50] VITALS: BP 137/74; PULSE 103; RESP 20; TEMP 97.1; O2SAT 93
[2017-03-09] MEDS ORDERED: HUMIBIDDM PO (12:04)
[2017-03-09] MEDS ORDERED: PRED10PA PO (12:04)
--- NOTE | 2017-03-09 12:05 | HHI.DCPOC ---
Discharge Care Plan Diagnosis: (1) Bronchitis Goals to Promote Your Health * To prevent worsening of your condition and complications * To maintain your health at the optimal level Directions to Meet Your Goals Take your medications as prescribed Follow your dietary instruction Follow activity as directed Keep your appointments as scheduled Take your immunizations and boosters as scheduled If your symptoms worsen call your PCP, if no PCP go to Urgent Care Center or Emergency Room Smoking is Dangerous to Your Health. Avoid second hand smoke Call the 24-hour hour crisis hotline for domestic abuse at Ijeoma Roewll MD Mar 09, 2017 12:05
--- NOTE | 2017-03-09 12:18 | HHI.DS ---
Discharge Summary Admission Date Mar 08, 2017 at 11:34 Discharge Date: Mar 09, 2017 Admitting Diagnosis Hypoxia, bronchitis, bronchospasm (1) Bronchitis ICD Code: J40 - Bronchitis, not specified as acute or chronic Procedures none Brief History - From Admission Pleasant 66 yo male, with PMH of HTN, came for eval of SOB x 1 day. Shortness of breath this am getting worse. Does admit to having a cold with runny nose and woke up with worsening shortness of breath. Says she was never diagnosed with COPD. Denies any cough. Denies any fever, chills. No chest ain or sob.No n/vd/c. No urinary complains. CBC/BMP: 03/09/17 0610 03/09/17 0610 Significant Findings Laboratory Tests Test 03/08/17 08:50 03/08/17 12:25 03/09/17 06:10 Platelet Count 107 TH/MM3 (150-450) 103 TH/MM3 (150-450) Neutrophils (%) (Auto) 74.0 % (16.0-70.0) 93.5 % (16.0-70.0) Eosinophils (%) (Auto) 6.4 % (0.0-4.0) Basophils (%) (Auto) 3.7 % (0.0-2.0) Eosinophils # (Auto) 0.6 TH/MM3 (0-0.4) Basophils # (Auto) 0.4 TH/MM3 (0-0.2) Random Glucose 147 MG/DL (74-106) 166 MG/DL (74-106) Estimat Glomerular Filtration Rate 67 ML/MIN (>89) 67 ML/MIN (>89) Troponin I LESS THAN 0.02 NG/ML B-Type Natriuretic Peptide 103 PG/ML (0-100) Blood Gas HCO3 29 mmol/L (22-26) Blood Gas Base Excess 4.4 mmol/L (-2-2) Arterial Blood pH 7.44 (7.380-7.420) Arterial Blood Partial Pressure CO2 43 mmHG (38-42) White Blood Count 11.4 TH/MM3 (4.0-11.0) Lymphocytes (%) (Auto) 4.5 % (9.0-44.0) Neutrophils # (Auto) 10.7 TH/MM3 (1.8-7.7) Lymphocytes # (Auto) 0.5 TH/MM3 (1.0-4.8) Imaging Last Impressions Chest X-Ray 03/08/17 0850 Signed Impressions: Service Date/Time: Wednesday, March 08, 2017 09:55 - CONCLUSION: No acute disease. Tima Diop MD CT Angiography 03/08/17 0000 Signed Impressions: Service Date/Time: Wednesday, March 08, 2017 10:27 - CONCLUSION: 1. No pulmonary embolus. 2. 6 mm nodule in the left upper lung with a calcification. This has fairly benign features. It could be followed with a noncontrast CT examination 6-12 months. 3. Gallstone Tima Diop MD PE at Discharge GENERAL: This is a well-nourished, well-developed patient, in no apparent distress. CARDIOVASCULAR: Regular rate and rhythm without murmurs, gallops, or rubs. RESPIRATORY: Clear to auscultation. Breath sounds equal bilaterally. No wheezes , rales, or rhonchi. GASTROINTESTINAL: Abdomen soft, non-tender, nondistended. Normal active bowel sounds MUSCULOSKELETAL: Extremities without clubbing, cyanosis, or edema. NEURO: Alert & Oriented x4 to person, place, time, situation. Moves all ext x4 Pt update on day of discharge Patient seen today in follow-up for bronchitis. Tolerating steroids, oxygen status is stable and patient has passes walk test. Discharge plan discussed with patient Hospital Course Patient was seen and treated for bronchitis with bronchospasm. Overall improved. Patient did well with IV steroids and a short course of oxygen. Pt Condition on Discharge: Good Discharge Disposition: Discharge Home Discharge Time: <= 30 minutes Discharge Instructions DIET: Follow Instructions for: As Tolerated, No Restrictions Activities you can perform: Regular-No Restrictions Follow up Referrals: PCP Follow-up - 1 Week New Medications: Dextromethorphan-Guaifenesin (Mucinex DM) 30-600 Mg Tab 1 TAB PO BID PRN for CHEST CONGESTION AND/OR COUGH, #20 TAB 0 Refills Prednisone (21) 10 mg tab Dose Pack (Prednisone (21) 10 mg tab Dose Pack) 10 Mg Pack 10 MG PO DIRECTED for Inflammation, #1 DSPK 0 Refills Continued Medications: Atorvastatin (Atorvastatin) 40 Mg Tab 40 MG PO HS for Cholesterol Management, #30 TAB 0 Refills Carvedilol (Coreg) 3.125 Mg Tab 3.125 MG PO Q12HR for cmp, #60 TAB Clopidogrel (Plavix) 75 Mg Tab 75 MG PO DAILY for cva, #30 TAB Ramipril (Ramipril) 5 Mg Cap 5 MG PO DAILY for cmp, #30 Ijeoma Samayoa MD Mar 09, 2017 12:18
== END 2017-03-09 12:49 | disposition home or self-care (01) | DRG 203 ==
LOC: PHED 08:39 → PHEDA 11:34 → PH3A 13:02
PROVIDERS: ADMIT Hospitalist; ATTEND Hospitalist
DX: J40 Bronchitis, not specified as acute or chronic (principal); I10 Essential (primary) hypertension; J98.01 Acute bronchospasm; R09.02 Hypoxemia; R91.1 Solitary pulmonary nodule; Z86.73 Personal history of transient ischemic attack (TIA), and cerebral infarction without residual deficits; Z79.02 Long term (current) use of antithrombotics/antiplatelets; Z23 Encounter for immunization
CPT/HCPCS: 36600; 71010; 71275; 80048; 80053; 82550; 82805; 83735; 83880; 84484; 85025; 85610; 85730; 87040; 90471; 90732; 93005; 94618; 94640; 94664; 96374; G0009; J1650; J2920; J2930; Q9967